=== PATIENT | male | born 1950 | race Caucasian/White ===

== ENCOUNTER → 2020-09-02 09:18 | Outpatient (BNV) | payer MEDICARE, OTHER, SELFPAY | PROVIDERS: PCP Internal Medicine Geriatric Medicine; Visit Provider Internal Medicine | DX: C91.10 Chronic lymphocytic leukemia of B-cell type not having achieved remission (principal); R22.41 Localized swelling, mass and lump, right lower limb; M10.071 Idiopathic gout, right ankle and foot | CPT/HCPCS: 38222; 99204; 99212; 99213; 99214; 99215; 99442; G2211 ==

== ENCOUNTER 2020-10-06 11:47 | Outpatient (REF) | payer MEDICARE, OTHER, SELFPAY ==
[2020-10-06 13:57] LABS: Basophils Absolute Auto 0.1 X10*3/uL (0.0-0.2); Basophils Percent Auto 0.4 % (0-2); Eosinophils Absolute Auto 0.7 X10*3/uL (0.0-0.4); Eosinophils Percent Auto 2.2 % (0-4); Hematocrit 41.2 % (42-52); Hemoglobin 12.7 g/dl (14.0-18.0); Imm Gran Abs Auto 0.09 X10*3/uL (0.00-0.03); Imm Gran Pct Auto 0.3 % (0.0-0.4); Lymphocytes Percent Auto 74.2 % (20-40); MANUAL DIFF FLAG SCAN; Mean Corpuscular HGB Conc 30.8 g/dl (31.0-36.0); Mean Corpuscular Hemoglobin 25.7 pg (27.0-33.0); Mean Corpuscular Volume 83.4 fL (80-98); Mean Platelet Volume 11.1 fL (9.4-12.4); Monocytes Absolute Auto 0.9 X10*3/uL (0.1-1.2); Monocytes Percent Auto 3.1 % (2-11); Neutrophils Percent Auto 19.8 % (45-73); Platelet Count 191 X10*3/uL (160-400); Red Blood Count 4.94 X10*6/uL (4.60-5.80); Red Cell Distribution Width 18.8 % (11.0-16.0); SCAN SMEAR FLAG 1
[2020-10-06 14:04] LABS: Lymphocytes Absolute Auto 22.3 X10*3/uL (1.2-4.9)
[2020-10-06 14:21] LABS: Iron 213 mcg/dL (45-160); Percent Iron Saturation 64 % (15-50); Total Iron Binding Capacity 333 mcg/dL (228-428); Unsaturated Iron Binding 120 ug/dL
[2020-10-06 14:27] LABS: SLIDE REVIEW VERIFIED
== END 2020-10-06 11:48 | disposition home or self-care (01) ==
LOC: HO.HMGCLDS 11:47
PROVIDERS: PCP Internal Medicine Geriatric Medicine; Visit Provider Internal Medicine
DX: C91.10 Chronic lymphocytic leukemia of B-cell type not having achieved remission (principal)
CPT/HCPCS: 36415; 83540; 85025

== ENCOUNTER 2020-10-14 09:39 | Outpatient (REF) | payer MEDICARE, OTHER, SELFPAY ==
[2020-10-14 11:55] LABS: Anion Gap 12 (12-20); Blood Urea Nitrogen 14 mg/dL (9-16); Calcium 9.2 mg/dL (8.4-10.2); Carbon Dioxide 26 mmol/L (22-29); Chloride 105 mmol/L (96-108); Estimated Glomerular Filt Rate > 60; Glucose Random 130 mg/dL (60-115); Potassium 3.9 mmol/L (3.3-5.1); Sodium 139 mmol/L (135-145)
[2020-10-14 11:59] LABS: INTERNATIONAL NORM RATIO 1.1 (0.9-1.1); Prothrombin Time 13.5 SEC (10.8-13.0)
[2020-10-14 12:01] LABS: Hemoglobin 12.4 g/dl (14.0-18.0); Mean Corpuscular HGB Conc 31.8 g/dl (31.0-36.0); Mean Corpuscular Hemoglobin 26.3 pg (27.0-33.0); Mean Corpuscular Volume 82.8 fL (80-98); Mean Platelet Volume 10.4 fL (9.4-12.4); Platelet Count 189 X10*3/uL (160-400); Red Blood Count 4.71 X10*6/uL (4.60-5.80); Red Cell Distribution Width 18.1 % (11.0-16.0); White Blood Count 24.6 X10*3/uL (4.8-10.8)
[2020-10-14 13:31] LABS: Band Neutrophils Percent 1 % (3-5); Basophils Abs Manual 0.7 X10*3/uL (0.0-0.3); Basophils Percent Manual 3 % (0-1); Lymphocytes Absolute Manual 18.5 X10*3/uL (0.6-4.8); Lymphocytes Percent Manual 75 % (20-40); Monocytes Absolute Manual 0.2 X10*3/uL (0.0-1.2); Monocytes Percent Manual 1 % (2-11); Neutrophils Absolute Manual 5.2 X10*3/uL (2.2-7.9); Neutrophils Percent Manual 20 % (45-73)
[2020-10-14 13:33] LABS: Microcytosis 1+ (5-14) /OIF; Ovalocytes 1+ (5-14) /OIF; RBC Morphology NOTED
[2020-10-14 13:34] LABS: Platelet Estimate NORMAL (NORMAL); Platelet Morphology Comment NORMAL; Smudge Cells PRESENT
== END 2020-10-14 09:40 | disposition home or self-care (01) ==
LOC: HO.HMGCLDS 09:39
PROVIDERS: PCP Internal Medicine Geriatric Medicine; Visit Provider Internal Medicine Cardiovascular Disease
DX: Z01.810 Encounter for preprocedural cardiovascular examination (principal); I25.10 Atherosclerotic heart disease of native coronary artery without angina pectoris
CPT/HCPCS: 36415; 80048; 85007; 85025; 85027; 85610

== ENCOUNTER 2021-03-24 09:57 | Outpatient (REF) | payer MEDICARE, OTHER, SELFPAY ==
--- NOTE | ~2021-03-24 | PE_ITS ---
EXAMINATION: Fluorine-18 FDG PET/CT Scan CLINICAL INDICATION: Initial treatment management. CLL staging. PROCEDURE: 52 minutes following the intravenous administration of 16.9 mCi of fluorine 18 FDG, images from the base of the skull to the mid thighs were obtained using a combined PET/CT scanner with CT scan based attenuation correction. No oral contrast was administered. No intravenous contrast was administered. Transverse, coronal, sagittal, and volume reconstruction projections were obtained. The patient's blood glucose as determined by a finger stick, was 127 mg/dl immediately prior to injection. Total CT exam dose-length product 758.93 mGy-cm * These CT images were obtained using dose optimization techniques as appropriate, variously including the following: Automated exposure control * Adjustment of mA and/or kV according to patient size (this includes techniques or standardized protocols for targeted exams where dose is matched to indication/reason for exam; i.e. extremities or head) * Use of iterative reconstruction technique COMPARISON: No previous PET/CT scan or other relevant imaging studies are available for comparison. FINDINGS: (Slice numbers described in this report are numbered superiorly to inferiorly with slice #1 in the head) NECK AND VISUALIZED HEAD: Multiple extensive subcentimeter cervical lymph nodes are present at all levels bilaterally. These are all too small to be characterized on the FDG PET images. Largest lymph node is a 1.5 x 1.0 cm right cervical level 1B lymph node at the level of the inferior aspect of the right temporomandibular gland which shows some weak FDG activity, SUVmax 2.0, slice 40/267. No other foci of abnormal FDG activity are present in the neck or visualized head. All the other activity in this region appears physiological. THORAX: Multiple axillary lymph nodes are present bilaterally, the largest of which are mildly enlarged and weakly FDG avid. Body Straightener is a left axillary lymph node that measures 2.1 x 1.7 cm in largest transverse dimensions and shows SUVmax 2.1, slice 73/267. There are also multiple subcentimeter mediastinal lymph nodes, none of which are large enough to be well characterized on the FDG PET pulmonary nodules are visualized ages. No significant pulmonary nodules are visualized on these nondiagnostic CT images. A few small subcentimeter nodules are visualized, such as a 0.3 cm right middle lobe nodule, slice 122/349 and a 0.4 cm left apical nodule, slice 87/349. There is no pleural or pericardial fluid, or pneumothorax. ABDOMEN AND PELVIS: No foci of abnormal FDG activity are present in the abdomen or pelvis. The liver is normal in appearance. The gallbladder is resected and there are metallic surgical clips in the gallbladder bed. The spleen is enlarged measuring 17 cm in largest dimension in the coronal projection. There is no abnormal FDG activity in the spleen. The kidneys, adrenal glands and pancreas are unremarkable. There is mild diffuse FDG activity throughout the gastrointestinal tract of varying intensities, with no suspicious focal component. There is diverticulosis without evidence of diverticulitis. The hollow viscera are otherwise unremarkable. The pelvic organs are unremarkable. Multiple metallic surgical clips are present in the scrotum, probably from vasectomy surgery. A fat-containing left inguinal hernia is present. There is an enlarged right external iliac lymph node measuring 2.4 x 1.8 cm in largest transverse dimensions with mild FDG activity, S SUVmax 3.2, slice 202/267. There is also a mildly enlarged left external iliac lymph node showing SUVmax 3.3, slice 201/267. Scattered small subcentimeter retroperitoneal lymph nodes are present. No additional retroperitoneal, pelvic or inguinal lymphadenopathy is present. MUSCULOSKELETAL: No foci of abnormal FDG activity are present in the osseous structures. There are diffuse degenerative changes in the spine but no suspicious sclerotic or lytic lesions are visualized. There is a mild thoracolumbar scoliosis with lower lumbar convexity to the right. Poststernotomy changes with multiple metallic sternal wires in place are noted, with no associated abnormal FDG activity. VASCULAR: Diffuse vascular calcifications including coronary are noted. PET/PET CT fusion skull to thigh IMPRESSION: 1. Multiple lymph nodes are noted as described above in the cervical, axillary, mediastinal and bilateral external iliac joe chains, some of which are enlarged and the largest of which show weak to mild FDG activity. These are nonspecific but consistent with the diagnosis of CLL. 2. Splenomegaly. 3. Diffuse vascular calcifications including coronary.
== END 2021-03-24 09:58 | disposition home or self-care (01) ==
LOC: HO.PET 09:57
PROVIDERS: PCP Internal Medicine Geriatric Medicine; Visit Provider Internal Medicine
DX: Z13.89 Encounter for screening for other disorder (principal)

== ENCOUNTER → 2021-09-17 13:40 | Outpatient (BNVA) | payer MEDICARE, OTHER, SELFPAY | PROVIDERS: PCP Internal Medicine Geriatric Medicine; Visit Provider Surgery Vascular Surgery | DX: I73.9 Peripheral vascular disease, unspecified (principal); I73.00 Raynaud's syndrome without gangrene | CPT/HCPCS: 99202 ==

== ENCOUNTER 2021-10-29 09:52 | Outpatient (REF) | payer MEDICARE, OTHER, SELFPAY ==
--- NOTE | ~2021-10-29 | US_ITS ---
EXAMINATION: ANKLE-BRACHIAL INDICES SINGLE LEVEL PULSE VOLUME RECORDING ARTERIAL DUPLEX BILATERAL LEGS CLINICAL INFORMATION: Peripheral vascular disease COMPARISON: None TECHNIQUE: Ankle-brachial indices and PVR at the ankle were obtained. Duplex Doppler of the bilateral lower extremity arterial systems was performed. FINDINGS: RIGHT: Ankle-brachial index: 1.27 PVR: Normal Diffuse atherosclerotic disease. Common femoral: PSV 150 cm/s. Triphasic waveform. Deep femoral: PSV 172 cm/s. Biphasic waveform. Proximal superficial femoral: PSV 118 cm/s. Biphasic waveform. Mid superficial femoral: PSV 98 cm/s. Biphasic waveform. Distal superficial femoral: PSV 111 cm/s. Triphasic waveform. Popliteal: PSV 119 cm/s. Triphasic waveform. Posterior tibial: PSV 95 cm/s. Biphasic waveform. LEFT: Ankle-brachial index: 1.24 PVR: Normal Diffuse atherosclerotic disease. Common femoral: PSV 136 cm/s. Triphasic waveform. Deep femoral: PSV 301 cm/s. Biphasic waveform. Proximal superficial femoral: PSV 145 cm/s. Biphasic waveform. Mid superficial femoral: PSV 98 cm/s. Triphasic waveform. Distal superficial femoral: PSV 171 cm/s. Triphasic waveform. Popliteal: PSV 121 cm/s. Triphasic waveform. Posterior tibial: PSV 100 cm/s. Triphasic waveform. US/US KIMBERLY complete IMPRESSION: Diffuse atherosclerotic disease without evidence of hemodynamically significant stenosis.
--- NOTE | ~2021-10-29 | US_ITS ---
EXAMINATION: ANKLE-BRACHIAL INDICES SINGLE LEVEL PULSE VOLUME RECORDING ARTERIAL DUPLEX BILATERAL LEGS CLINICAL INFORMATION: Peripheral vascular disease COMPARISON: None TECHNIQUE: Ankle-brachial indices and PVR at the ankle were obtained. Duplex Doppler of the bilateral lower extremity arterial systems was performed. FINDINGS: RIGHT: Ankle-brachial index: 1.27 PVR: Normal Diffuse atherosclerotic disease. Common femoral: PSV 150 cm/s. Triphasic waveform. Deep femoral: PSV 172 cm/s. Biphasic waveform. Proximal superficial femoral: PSV 118 cm/s. Biphasic waveform. Mid superficial femoral: PSV 98 cm/s. Biphasic waveform. Distal superficial femoral: PSV 111 cm/s. Triphasic waveform. Popliteal: PSV 119 cm/s. Triphasic waveform. Posterior tibial: PSV 95 cm/s. Biphasic waveform. LEFT: Ankle-brachial index: 1.24 PVR: Normal Diffuse atherosclerotic disease. Common femoral: PSV 136 cm/s. Triphasic waveform. Deep femoral: PSV 301 cm/s. Biphasic waveform. Proximal superficial femoral: PSV 145 cm/s. Biphasic waveform. Mid superficial femoral: PSV 98 cm/s. Triphasic waveform. Distal superficial femoral: PSV 171 cm/s. Triphasic waveform. Popliteal: PSV 121 cm/s. Triphasic waveform. Posterior tibial: PSV 100 cm/s. Triphasic waveform. US/US arterial duplex LE BI IMPRESSION: Diffuse atherosclerotic disease without evidence of hemodynamically significant stenosis.
== END 2021-10-29 09:53 | disposition home or self-care (01) ==
LOC: HO.US 09:52
PROVIDERS: Visit Provider Surgery Vascular Surgery
DX: I73.9 Peripheral vascular disease, unspecified (principal)
CPT/HCPCS: 93923; 93925

== ENCOUNTER → 2021-11-05 09:56 | Outpatient (BNVA) | payer MEDICARE, OTHER, SELFPAY | PROVIDERS: PCP Internal Medicine Geriatric Medicine; Visit Provider Surgery Vascular Surgery | DX: I73.00 Raynaud's syndrome without gangrene (principal) | CPT/HCPCS: 99212 ==

== ENCOUNTER 2022-03-03 10:58 | Outpatient (REF) | payer MEDICARE, OTHER, SELFPAY ==
--- NOTE | ~2022-03-03 | XR_ITS ---
EXAMINATION: XR CHEST CLINICAL INFORMATION: Acute bronchitis COMPARISON: None TECHNIQUE: 2 views of the chest were obtained. FINDINGS: Cardiac silhouette is normal in size. Patient is status post sternotomy. The lungs are adequately aerated. Mild diffuse patchy airspace opacities are noted bilaterally, slightly more prominent on the left. There is no gross lobar consolidation. No pleural effusion or pneumothorax. Moderate degenerative changes of the spine. Surgical clips of the upper abdomen. XR/XR chest 2V IMPRESSION: Mild diffuse patchy airspace opacities are noted bilaterally, slightly more prominent on the left. Findings are nonspecific but most suggestive of an infectious or inflammatory process. Clinical correlation recommended. Follow-up imaging suggested status post treatment to ensure improvement/resolution.
== END 2022-03-03 10:59 | disposition home or self-care (01) ==
LOC: HO.XRAY 10:58
PROVIDERS: PCP Internal Medicine Geriatric Medicine; Visit Provider Emergency Medicine
DX: J20.9 Acute bronchitis, unspecified (principal)
CPT/HCPCS: 71046

== ENCOUNTER 2022-03-09 09:55 | Outpatient (REF) | payer MEDICARE, OTHER, SELFPAY ==
--- NOTE | ~2022-03-09 | PE_ITS ---
EXAMINATION: FLUORINE-18 FDG PET/CT SCAN CLINICAL INDICATION: Subsequent treatment management. Chronic lymphocytic leukemia. COMPARISON: PET CT scan 03/24/2021. TECHNIQUE: 59 minutes following the intravenous administration of 14.2 mCi of fluorine 18 FDG, images from the base of the skull to the mid thighs were obtained using a combined PET/CT scanner with CT scan based attenuation correction. No intravenous contrast was administered. Transverse, coronal, sagittal, and volume reconstruction projections were obtained. The patient's blood glucose as determined by a finger stick, was 111 mg/dl immediately prior to injection. FINDINGS: NECK AND VISUALIZED HEAD: The study redemonstrates multiple enlarged lymph nodes in the neck bilaterally, more numerous and more prominent on the right. The largest lymph node is redemonstrated in the right level 1B region with an SUV max of 2.2 (image ). Uptake elsewhere within the neck appears physiologic. There is mucoperiosteal thickening in the left maxillary sinus. There have been bilateral lens extractions. The thyroid gland appears normal. THORAX: The study redemonstrates multiple supraclavicular lymph nodes bilaterally, which are more prominent compared to prior imaging. None of the lymph nodes demonstrate significant FDG uptake. The study also redemonstrates bilateral axillary lymph nodes which are more prominent compared to prior imaging. However, there is no significant FDG uptake, and the previously demonstrated lymph node in the left axillary region has an SUV max of 2.3 (image 81/267). There has been interval increase in the size and number of the mediastinal and paratracheal lymph nodes compared to prior imaging, without significant increased FDG activity. There has been interval increase in the size and number of multiple lymph nodes in the lateral chest muller bilaterally, with no significant increased FDG activity. A small lymph node is now noted posterior to the aortic arch, which was not visualized on prior imaging. It has an SUV max of 1.6 (image 72/267). Multiple small nodules are redemonstrated in the lungs bilaterally. None of them demonstrate increased FDG activity. There is a small hiatal hernia, without abnormal FDG uptake. There are no pleural pericardial effusions. ABDOMEN AND PELVIS: There is no abnormal FDG uptake noted in the abdomen and pelvis. The study redemonstrates splenomegaly, which is not significantly changed compared to prior study. There are bilateral pelvic nodes, which were demonstrated on prior imaging, which are more prominent compared to the prior study. However, there is no significant abnormal FDG uptake. Physiologic activity is noted in the kidneys and renal collecting systems bilaterally and there is FDG uptake noted in the large and small bowel. There is diffuse diverticulosis. There is no evidence of bowel obstruction or inflammation. The liver, pancreas and adrenal glands appear normal. The patient is status post cholecystectomy. The study redemonstrates a left fat-containing inguinal hernia. There appear to be bilateral vasectomy clips. MUSCULOSKELETAL: No significant abnormal FDG uptake is noted in the osseous structures. There is a small focus of activity adjacent to the greater trochanter of the left hip, which was demonstrated on prior imaging, and is likely degenerative. There are multilevel degenerative changes throughout the spine with narrowing of intervertebral disc height and facet arthropathy. There is sigmoid scoliosis, convex to the left in the thoracic region and toward the right in the mid and lower lumbar spine. There are degenerative changes at the acromioclavicular joints bilaterally. There are no acute fractures or subluxations. There are sequelae of prior median sternotomy. VASCULAR: The study redemonstrates extensive atheromatous calcification of the aorta and its branches. There are also coronary artery atheromatous calcifications. PET/PET CT fusion skull to thigh IMPRESSION: 1. There has been interval increase in the size and number of lymph nodes bilaterally in the supraclavicular, axillary and chest wall regions, and also in the pelvis. These do not demonstrate significant increase in FDG uptake. 2. There is persistent splenomegaly. 3. There is diverticulosis.
== END 2022-03-09 09:56 | disposition home or self-care (01) ==
LOC: HO.PET 09:55
PROVIDERS: Visit Provider Internal Medicine
DX: Z13.89 Encounter for screening for other disorder (principal)

== ENCOUNTER 2022-09-21 08:16 | Outpatient (REF) | payer MEDICARE, OTHER, SELFPAY ==
--- NOTE | ~2022-09-21 | PE_ITS ---
EXAMINATION: Fluorine-18 FDG PET/CT Scan CLINICAL INDICATION: Subsequent treatment management. Chronic lymphocytic leukemia. PROCEDURE: 60 minutes following the intravenous administration of 15.4 mCi of fluorine 18 FDG, images from the base of the skull to the mid thighs were obtained using a combined PET/CT scanner with CT scan based attenuation correction. No intravenous contrast was administered. Transverse, coronal, sagittal, and volume reconstruction projections were obtained. The patient's blood glucose as determined by a finger stick, was 125 mg/dl immediately prior to injection. The radiotracer was injected intravenously through right antecubital superficial vein, without any complications. Total CT exam dose-length product 624.35 mGy-cm * These CT images were obtained using dose optimization techniques as appropriate, variously including the following: Automated exposure control * Adjustment of mA and/or kV according to patient size (this includes techniques or standardized protocols for targeted exams where dose is matched to indication/reason for exam; i.e. extremities or head) * Use of iterative reconstruction technique COMPARISON: Most recent prior PET CT study done on 03/09/2022 and the baseline PET CT study done on 03/24/2021. FINDINGS: NECK AND VISUALIZED HEAD: No FDG avid disease. Previously documented bilateral supraclavicular lymph nodes show interval decrease in size as well as number since the most recent prior study dated 03/09/2022. Solitary mucus tension cyst versus polyp without any FDG avidity is noted within the left maxillary sinus, unchanged, measures approximately 1.6 cm. THORAX: Interval decrease in size as well as number of previously documented non-FDG avid bilateral axillary lymph nodes since the prior study dated 03/09/2022. No FDG avid disease. ABDOMEN AND PELVIS: No FDG avid disease. Non-FDG avid splenomegaly has decreased in size from 18.5 cm previously to currently 15.2 cm. There are no FDG avid retroperitoneal and/or mesenteric lymphadenopathy. Previously documented mild FDG avid bilateral extensive pelvic and bilateral inguinal lymphadenopathy shows interval decrease in size and number since the most recent prior study dated 03/09/2022. No new abnormalities. Colonic diverticulosis without any CT features of superimposed acute diverticulitis. MUSCULOSKELETAL: No suspicious FDG avid disease. Postop changes of sternotomy. VASCULAR: Calcific atherosclerotic disease of the aorta and its branches including coronary artery calcifications and possible coronary arterial stent. No evidence of aneurysm. Postop changes of CABG. SUV max OF MEDIASTINAL BLOOD POOL: 1.8 SUV max OF LIVER: 2.6 PET/PET CT fusion skull to thigh IMPRESSION: 1. No FDG avid disease is identified within the head and neck, chest, abdomen and pelvis. 2. Previously documented bilateral supraclavicular, axillary and pelvic lymph nodes associated with minimal or no FDG uptake show definite interval decrease in size and number since the prior study dated 03/09/2022 and show no evidence of any FDG avidity, consistent with interval improvement. 3. No new abnormalities.
== END 2022-09-21 08:17 | disposition home or self-care (01) ==
LOC: HO.PET 08:16
PROVIDERS: PCP Internal Medicine Geriatric Medicine; Visit Provider Internal Medicine
DX: Z13.89 Encounter for screening for other disorder (principal)

== ENCOUNTER 2022-11-03 11:07 | Outpatient (REF) | payer MEDICARE, OTHER, SELFPAY | END 2022-11-03 11:08 | disposition home or self-care (01) | LOC: HO.LAB 11:07 | PROVIDERS: PCP Internal Medicine Geriatric Medicine; Visit Provider Internal Medicine Geriatric Medicine | DX: Z13.89 Encounter for screening for other disorder (principal) ==

== ENCOUNTER 2023-01-14 10:22 | Outpatient (REF) | payer MEDICARE, OTHER, SELFPAY ==
[2023-01-14 11:55] LABS: Cholesterol 122 mg/dL (<200); HDL Cholesterol 33 mg/dL (>40); LDL Cholesterol Calculated 63 mg/dL (<100); Triglycerides 131 mg/dL (<150)
== END 2023-01-14 10:23 | disposition home or self-care (01) ==
LOC: HO.HHCL 10:22
PROVIDERS: Visit Provider Internal Medicine Cardiovascular Disease
DX: I25.10 Atherosclerotic heart disease of native coronary artery without angina pectoris (principal)
CPT/HCPCS: 36415; 80061

== ENCOUNTER 2023-03-04 08:26 | Outpatient (REF) | payer MEDICARE, OTHER, SELFPAY | END 2023-03-04 08:27 | disposition home or self-care (01) | LOC: HO.LAB 08:26 | PROVIDERS: PCP Internal Medicine Geriatric Medicine; Visit Provider Internal Medicine Geriatric Medicine | DX: Z13.89 Encounter for screening for other disorder (principal) ==

== ENCOUNTER 2023-03-21 15:46 | Outpatient (REF) | payer MEDICARE, OTHER, SELFPAY ==
--- NOTE | ~2023-03-21 | XR_ITS ---
EXAMINATION: XR CHEST CLINICAL INFORMATION: Cough. COMPARISON: Chest x-ray 03/03/2022 TECHNIQUE: 2 views of the chest were obtained. FINDINGS: The lungs are well-inflated but clear of acute process. The heart size and pulmonary vascularity is normal. There are median sternotomy sutures and mediastinal amalia from previous intervention. No gross bony abnormality seen. XR/XR chest 2V IMPRESSION: Unremarkable chest exam.
[2023-03-21 18:44] LABS: Influenza A PCR NEGATIVE (Negative); Influenza B PCR NEGATIVE (Negative); Resp Syncy Virus RNA Qual PCR NEGATIVE (Negative); SARS COV2 PCR INHOUSE NEGATIVE (Negative)
== END 2023-03-21 15:47 | disposition home or self-care (01) ==
LOC: HO.HHCX 15:46
PROVIDERS: Visit Provider Internal Medicine
DX: Z11.52 Encounter for screening for COVID-19 (principal); Z20.822 Contact with and (suspected) exposure to COVID-19; R05.9 Cough, unspecified
CPT/HCPCS: 0241U; 71046

== ENCOUNTER 2023-03-29 10:03 | Outpatient (REF) | payer OTHER, MEDICARE, SELFPAY ==
--- NOTE | ~2023-03-29 | PE_ITS ---
EXAMINATION: FLUORINE-18 FDG PET/CT SCAN CLINICAL INFORMATION: Subsequent treatment management. Chronic lymphocytic leukemia on therapy. Restaging. TECHNIQUE: 54 minutes following the intravenous administration of 17.3 mCi of fluorine 18 FDG, images from the base of skull to mid-thigh were obtained using a combined PET/CT scanner with CT scan based attenuation correction. No intravenous contrast was administered. Transverse, coronal, sagittal, and volume reconstruction projections were obtained. The patient's blood glucose as determined by a finger stick, was 146 mg/dL immediately prior to injection. The radiotracer was injected intravenously through the right antecubital superficial vein, without any complications. Total CT exam dose-length product 750.35 mGy-cm. * These CT images were obtained using dose optimization techniques as appropriate, variously including the following: Automated exposure control * Adjustment of mA and/or kV according to patient size (this includes techniques or standardized protocols for targeted exams where dose is matched to indication/reason for exam; i.e. extremities or head) * Use of iterative reconstruction technique COMPARISON: Most recent prior PET CT study done on 09/21/2022 and the baseline study done on 03/24/2021. FINDINGS: SUV max REFERENCE: Blood: 2.7 (current); 2.5 (09/21/2022) 2.8 (baseline-03/24/2021). Liver: 4.0 (current). 2.8 (09/21/2022) 3.6 (baseline-03/24/2021). HEAD AND NECK: No abnormal radiotracer uptake. No large intracranial hemorrhage, acute territorial infarct or significant shift of midline structures. Specifically, no tracer avid cervical including supraclavicular lymphadenopathy is noted, unchanged. Note is made of interval progression of mucoperiosteal thickening of both maxillary sinuses. CHEST: Ports and Devices: None Lungs: No abnormal radiotracer uptake. Pleura: No significant pleural effusion. Lymph Nodes: No tracer-avid mediastinal, hilar or internal mammary or axillary lymphadenopathy. Specifically, previously documented bilateral axillary lymph nodes appear stable in size as well as number. Mediastinum: There is no significant pericardial effusion/thickening. Breasts/Chest Wall: No abnormal radiotracer uptake. ABDOMEN/PELVIS: Liver/Biliary System: No focal tracer-avid liver lesion. The gallbladder is surgically absent. Pancreas: Normal.No evidence of pancreatic ductal dilatation. Spleen: No abnormal radiotracer uptake. No evidence of splenomegaly. Adrenal Glands: No abnormal radiotracer uptake. Kidneys: No hydronephrosis, hydroureter or renal calculi bilaterally. Bowel: There is no significant bowel dilatation to suggest obstruction. Lymph Nodes: No tracer avid retroperitoneal, mesenteric or pelvic and/or groin lymphadenopathy. Specifically, previously documented bilateral groin/inguinal non tracer avid lymph nodes appear stable. Pelvic Organs: The urinary bladder is underdistended. The prostate is enlarged and appear heterogeneous. MUSCULOSKELETAL: No suspicious focal FDG avid disease. Postop changes of sternotomy. Asymmetric sclerosis involving the posterior part of the left iliac bone unchanged since the baseline study dated 03/24/2021. VASCULAR: Calcific atherosclerotic disease of the aorta including carotid and coronary arterial calcifications and no evidence of aneurysm, unchanged. THE SITE(S) OF MOST INTENSE FDG AVIDITY AND SUV MAX: No pathologic tracer avid disease. PET/PET CT fusion skull to thigh IMPRESSION: 1. Stable appearance of the head and neck and chest abdomen and pelvis since the most recent prior study dated 09/21/2022. 2. Specifically, previously identified non tracer avid bilateral axillary and bilateral groin lymph nodes appear relatively unchanged in size as well as number, and no new abnormalities.
== END 2023-03-29 10:04 | disposition home or self-care (01) ==
LOC: HO.PET 10:03
PROVIDERS: PCP Internal Medicine Geriatric Medicine; Visit Provider Internal Medicine
DX: Z13.89 Encounter for screening for other disorder (principal)

== ENCOUNTER 2023-08-15 12:04 | Outpatient (REF) | payer MEDICARE, OTHER, SELFPAY ==
[2023-08-15 14:12] LABS: Prostate Specific Antigen 4.59 ng/mL (<0.05-4.0)
[2023-08-15 15:46] LABS: Creatinine Urine 127.48 mg/dL
[2023-08-15 16:13] LABS: Microalbum/Creatinine Ratio Ur 17.2 ug/mg cr (<30)
[2023-08-16 08:51] LABS: ~HepC Num1 0.08 S/CO (0.00-0.79); ~Hepatitis C Antibody Nonreactive (Nonreactive)
== END 2023-08-15 12:05 | disposition home or self-care (01) ==
LOC: HO.HHCL 12:04
PROVIDERS: Internal Medicine; Visit Provider Internal Medicine Geriatric Medicine
DX: E11.59 Type 2 diabetes mellitus with other circulatory complications (principal); R97.20 Elevated prostate specific antigen [PSA]; Z11.59 Encounter for screening for other viral diseases; Z12.5 Encounter for screening for malignant neoplasm of prostate
CPT/HCPCS: 36415; 82043; 82570; 84153; 86803

== ENCOUNTER 2023-10-12 08:49 | Outpatient (AMB) | payer MEDICARE, OTHER, SELFPAY ==
--- NOTE | 2023-10-12 08:50 | A.OFFVIS_ITS ---
Intake Visit Reasons: elevated PSA/FH Prostate Ca Intake Note: Pt presents to the office today for a new patient visit for elevated PSA/FH prostate Ca. Urology Meds: Finasteride Blood Thinners: Aspirin Allergies No Known Allergies Allergy (Verified 10/12/23 08:50) HPI Comments Details: Abad is a pleasant male. He is a patient of Dr. Kelly. He has seen for the following urologic conditions - elevated PSA Accompanied by PSA reviewed Consistent with large prostate Discussed prostate biopsy versus trending PSA level They would rather check PSA in 6 months Discussed option of finasteride PFSH Medical History Family history of prostate cancer Atrial fibrillation COVID-19 vaccine administered History of cataract Depression Diabetes High cholesterol HTN (hypertension) Surgical History S/P triple vessel bypass Hx of cholecystectomy Family History Father Cancer Brother Cancer Mother Esophageal cancer Other Prostate cancer Social History Household Members: Spouse Housing: House Are you a primary laboratory animal care veterinarian to a significant other at home: No Do you presently have visiting nurse or other home services: No Alcohol intake: current Alcohol intake frequency: a few times a week Alcohol type: beer Patient Tobacco Use Status: Former Tobacco user Tobacco use type: Cigarette Cigarette Packs Per Day: 2.5 service: Yes Current occupational status: retired Review of Systems Const Denies chills and Denies fever(s) Card Reports no additional complaints and Denies syncope Resp Denies cough GI Denies abdominal pain and Denies heartburn Reports as per HPI and Denies change in libido Neuro Denies syncope Psych Denies change in libido Endo Denies change in libido Physical Exam Const General: cooperative, healthy appearing, comfortable and no acute distress Orientation/consciousness: patient oriented x3 HEENT Face and sinus: Yes normal facial exam Mouth: moist mucous membranes Neck Neck: Yes normal visual inspection, Yes full ROM and Yes trachea midline Chest Chest palpation & inspection: normal inspection of the chest Resp Effort & Inspection: normal respiratory effort, able to speak in complete sentences and no respiratory distress GI Inspection: Yes normal to inspection Back/Spine/Pelvis Cervical Spine: normal cervical lordosis Thoracic/Lumbar Spine: thoracic and lumbar spine normal to inspection Skin General skin exam: no rashes or lesions noted Neuro General: patient oriented x3, gait normal, tone normal and moves all extremities Extrem General: Yes normal to inspection and Yes capillary refill normal Assessment & Plan Assessment & Plan (1) Elevated PSA: Code(s): R97.20 - Elevated prostate specific antigen [PSA] Category: Medical Plan 6 month follow-up PSA Orders: Orders PSA,Total (Free>4and<10) 6 Months R97.20 - Elevated prostate specific antigen [PSA] Patient Instructions: Imaging studies, laboratory and physical exam results were discussed and reviewed in detail. No major barriers to patient understanding were identified. An opportunity to ask questions regarding the treatment plan was provided. All questions were answered. The patient expressed understanding and agreement with the above treatment plan. The patient is aware they should contact our office by phone for worsening of their current condition or the appearance of new urologic symptoms. Compliance is encouraged with any medications and followup testing that is ordered. It is a privilege to participate in the urologic care of your patient. If you have any questions or concerns regarding treatment for the above conditions, or other urologic issues, please do not hesitate to contact me. The office telephone contact is [phone]. This note is constructed using voice recognition software. While every effort has been made to ensure accuracy sccm administrator errors may have been included. Yours sincerely, Dr Bro Harrell MD, [facility] - Urology Providers of Expert, Compassionate Care for the Genitourinary System Coding Level of Care Code New Pt Level 4 (87329) Diagnoses Elevated PSA R97.20
== END 2023-10-12 09:30 | disposition home or self-care (01) ==
PROVIDERS: PCP Internal Medicine Geriatric Medicine; Visit Provider Urology
DX: R97.20 Elevated prostate specific antigen [PSA] (principal)
CPT/HCPCS: 99204

== ENCOUNTER → 2023-10-12 08:49 | Outpatient (BNVA) | payer OTHER, MEDICARE, SELFPAY | PROVIDERS: PCP Internal Medicine Geriatric Medicine; Visit Provider Urology ==

== ENCOUNTER 2023-11-16 09:49 | Outpatient (REF) | payer MEDICARE, OTHER, SELFPAY ==
--- NOTE | ~2023-11-16 | US_ITS ---
EXAMINATION: US VENOUS ULTRASOUND WITH DOPPLER LOWER EXTREMITY, RIGHT CLINICAL INFORMATION: Pain in right calf and swelling COMPARISON: None available. TECHNIQUE: Ultrasound of the deep veins is performed from the hip to the calf with compression sonography and color and pulse Doppler assessment. Spectral analysis with color-flow imaging is performed. FINDINGS: There is normal venous compression and respiratory variation and augmented flow. The visualized common femoral vein, superficial femoral vein, profunda femoral vein, popliteal vein, and the trifurcation region shows no evidence of deep venous thrombosis. There is no significant popliteal fossa cyst. If the patient's symptoms persist, followup ultrasound in 5 days 7 days might be of value to exclude proximal propagation from a non-visualized calf vein. US/US venous duplex LE RT IMPRESSION: No DVT demonstrated in the right lower extremity.
== END 2023-11-16 09:50 | disposition home or self-care (01) ==
LOC: HO.US 09:49
PROVIDERS: Visit Provider Internal Medicine
DX: C91.10 Chronic lymphocytic leukemia of B-cell type not having achieved remission (principal); R60.0 Localized edema
CPT/HCPCS: 93971

== ENCOUNTER 2024-03-07 08:43 | Outpatient (REF) | payer MEDICARE, OTHER, SELFPAY ==
[2024-03-07 11:59] LABS: Anion Gap 12 (12-20); Blood Urea Nitrogen 13 mg/dL (9-16); Calcium 9.5 mg/dL (8.4-10.2); Carbon Dioxide 29 mmol/L (22-29); Chloride 108 mmol/L (96-108); Cholesterol 94 mg/dL (<200); Estimated Glomerular Filt Rate > 60; Glucose Random 141 mg/dL (60-115); HDL Cholesterol 32 mg/dL (>40); LDL Cholesterol Calculated 47 mg/dL (<100); Potassium 4.4 mmol/L (3.3-5.1); Sodium 145 mmol/L (135-145); Triglycerides 78 mg/dL (<150)
[2024-03-07 12:18] LABS: PSA,Total (Free>4and<10) 4.46 ng/mL (0.00-4.00)
[2024-03-07 12:26] LABS: Creatinine Urine 49.87 mg/dL; Microalbum/Creatinine Ratio Ur 84.2 ug/mg cr (<30)
[2024-03-07 12:33] LABS: Folate 9.3 ng/mL (> or = 4.0); Vitamin B12 409 pg/mL (200-900)
[2024-03-08 11:27] LABS: Free Prostate Spec Ag 0.3 ng/mL; Percent Free Prostate Spec Ag 7 % (calc) (>25); Prostate Specific Ag Total 4.4 ng/mL (< OR = 4.0)
== END 2024-03-07 08:44 | disposition home or self-care (01) ==
LOC: HO.HHCL 08:43
PROVIDERS: Urology; Visit Provider Internal Medicine Geriatric Medicine
DX: Z12.5 Encounter for screening for malignant neoplasm of prostate (principal); R97.20 Elevated prostate specific antigen [PSA]; I25.10 Atherosclerotic heart disease of native coronary artery without angina pectoris; B07.8 Other viral warts; E11.59 Type 2 diabetes mellitus with other circulatory complications
CPT/HCPCS: 36415; 80048; 80061; 82043; 82570; 82607; 82746; 84153; 84154; 85025

== ENCOUNTER 2024-03-07 09:49 | Outpatient (REF) | payer MEDICARE, OTHER, SELFPAY ==
[2024-03-07 11:33] LABS: MANUAL DIFF FLAG NO
[2024-03-07 11:45] LABS: Basophils Percent Auto 0.6 % (0-2); Eosinophils Absolute Auto 0.2 X10*3/uL (0.0-0.4); Eosinophils Percent Auto 3.1 % (0-4); Hematocrit 35.5 % (42.0-52.0); Imm Gran Abs Auto 0.04 X10*3/uL (0.00-0.03); Imm Gran Pct Auto 0.6 % (0.0-0.4); Lymphocytes Absolute Auto 1.2 X10*3/uL (1.2-4.9); Lymphocytes Percent Auto 17.9 % (20-40); Mean Corpuscular HGB Conc 33.8 g/dl (31.0-36.0); Mean Corpuscular Hemoglobin 31.7 pg (27.0-33.0); Mean Corpuscular Volume 93.9 fL (80.0-98.0); Mean Platelet Volume 10.5 fL (9.4-12.4); Monocytes Absolute Auto 0.5 X10*3/uL (0.1-1.2); Monocytes Percent Auto 6.7 % (2-11); Neutrophils Absolute Auto 4.8 x10*3/uL (2.0-8.3); Neutrophils Percent Auto 71.1 % (45-73); Platelet Count 155 X10*3/uL (160-400); Red Blood Count 3.78 X10*6/uL (4.60-5.80); Red Cell Distribution Width 14.7 % (11.0-16.0); White Blood Count 6.8 X10*3/uL (4.8-10.8)
== END 2024-03-07 09:50 | disposition home or self-care (01) ==
LOC: HO.HHCL 09:49
PROVIDERS: Visit Provider Internal Medicine Geriatric Medicine
DX: Z13.89 Encounter for screening for other disorder (principal)
CPT/HCPCS: 36415; 85025

== ENCOUNTER 2024-03-22 08:39 | Outpatient (AMB) | payer MEDICARE, OTHER, SELFPAY ==
--- NOTE | 2024-03-22 08:39 | A.OFFVIS_ITS ---
Intake Visit Reasons: 6M PSA(Set) Intake Note: Patient is present for 6m PSA Urology Medication:NONE Antibiotic Allergy:NONE Blood Thinner:ELIQUIS,ASPIRIN Waterworks Pump Station Operator Required: No Allergies No Known Allergies Allergy (Verified 03/22/24 08:40) HPI Comments Details: Abad is a pleasant male. He is a patient of Dr. Kelly. He has seen for the following urologic conditions - elevated PSA Telemedicine Evaluation 15 min Consultation Doximity Halley Video Discussed PSA PCPT calculator shows 35% prostate cancer given low free PSA Discussed biopsy At this point in time he would like to repeat PSA in 6 months Will organize urine DNA test Elevated PSA PSA 08/09 4.6, 03/11 4.4 7% Consistent with large prostate Discussed prostate biopsy versus trending PSA level Brother with prostate cancer PFSH Medical History Family history of prostate cancer Atrial fibrillation COVID-19 vaccine administered History of cataract Depression Diabetes High cholesterol HTN (hypertension) Surgical History S/P triple vessel bypass Hx of cholecystectomy Family History Father Cancer Brother Cancer Mother Esophageal cancer Other Prostate cancer Social History Household Members: Spouse Housing: House Are you a primary daycare provider to a significant other at home: No Do you presently have visiting nurse or other home services: No Alcohol intake: current Alcohol intake frequency: a few times a week Alcohol type: beer Patient Tobacco Use Status: Former Tobacco user Tobacco use type: Cigarette Cigarette Packs Per Day: 2.5 service: Yes Current occupational status: retired Review of Systems Const All systems reviewed & are unremarkable except as noted in HPI and below Reports no additional complaints Resp Reports no additional complaints GI Reports no additional complaints Reports as per HPI Musc Reports no additional complaints Physical Exam Telemedicine evaluation Appropriate responses Regular breathing rate and rhythm HEENT Head: Yes normal to inspection Ears: hearing grossly normal bilaterally Eyes General: appearance normal, both eyes and all related structures Neck Neck: Yes normal visual inspection Chest Chest palpation & inspection: normal inspection of the chest Resp Effort & Inspection: normal respiratory effort and able to speak in complete sentences Telehealth Telehealth Telehealth Platform: Doximity Location of provider rendering services: practice address Location of patient: address on file Patient Identification confirmed using: Name, : Yes Telehealth method: video Patient verbally consented to treatment: Yes Patient verbally consented to billing insurance company: Yes Patient informed of any privacy concerns related to visit: Yes Minutes spent on Phone/Video with Pt.: 15 Assessment & Plan Assessment & Plan (1) Elevated PSA: Code(s): R97.20 - Elevated prostate specific antigen [PSA] Category: Medical Plan ExoDx Repeat PSA in six-month Orders: Orders PSA,Total (Free>4and<10) 6 Months R97.20 - Elevated prostate specific antigen [PSA] Patient Instructions: Imaging studies, laboratory and physical exam results were discussed and reviewed in detail. No major barriers to patient understanding were identified. An opportunity to ask questions regarding the treatment plan was provided. All questions were answered. The patient expressed understanding and agreement with the above treatment plan. The patient is aware they should contact our office by phone for worsening of their current condition or the appearance of new urologic symptoms. Compliance is encouraged with any medications and followup testing that is ordered. It is a privilege to participate in the urologic care of your patient. If you have any questions or concerns regarding treatment for the above conditions, or other urologic issues, please do not hesitate to contact me. The office telephone contact is [phone]. This note is constructed using voice recognition software. While every effort has been made to ensure accuracy bank operations officer errors may have been included. Yours sincerely, Dr Bro Harrell MD, [facility] - Urology Providers of Expert, Compassionate Care for the Genitourinary System Coding Level of Care Code Tele Est Pt Level 3 (99829) Diagnoses Elevated PSA R97.20
== END 2024-03-22 13:16 | disposition home or self-care (01) ==
LOC: HO.HUSH 08:39
PROVIDERS: PCP Internal Medicine Geriatric Medicine; Visit Provider Urology
DX: R97.20 Elevated prostate specific antigen [PSA] (principal)
CPT/HCPCS: 99213

== ENCOUNTER 2024-03-23 08:26 | Outpatient (REF) | payer MEDICARE, OTHER, SELFPAY ==
--- NOTE | ~2024-03-23 | US_ITS ---
EXAMINATION: US ABDOMEN COMPLETE CLINICAL INFORMATION: Evaluate splenomegaly. COMPARISON: None available. TECHNIQUE: Real-time imaging of the abdominal viscera. FINDINGS: PANCREAS: The proximal portion is unremarkable. The pancreatic tail. Visualized due to overlying bowel gas. ABDOMINAL AORTA: Mild atherosclerotic disease. INFERIOR VENA CAVA: Visualized portions are normal. LIVER: The liver is normal in size. The liver contour is normal. Parenchymal echogenicity is normal. No focal hepatic lesion. There is no intrahepatic biliary duct dilatation seen. GALLBLADDER: Surgically absent. COMMON BILE DUCT: Normal in caliber measuring 0.7 cm in diameter. RIGHT KIDNEY: No hydronephrosis. No renal calculi or focal parenchymal lesions. The kidney measures 11.7 cm in maximum dimension. LEFT KIDNEY: No hydronephrosis. No renal calculi or focal parenchymal lesions. The kidney measures 11.3 cm in maximum dimension. SPLEEN: The spleen measures 12.7 cm in maximum dimension. FREE FLUID: None. US/US abdomen complete IMPRESSION: Spleen at the upper limits of normal for size. Electronically signed by: Naomy Daley MD 03/23/2024 08:15 PM OMARI PEARCE
== END 2024-03-23 08:27 | disposition home or self-care (01) ==
LOC: HO.HMGCX 08:26
PROVIDERS: PCP Internal Medicine Geriatric Medicine; Visit Provider Internal Medicine
DX: C91.10 Chronic lymphocytic leukemia of B-cell type not having achieved remission (principal)
CPT/HCPCS: 76700

== ENCOUNTER 2024-03-31 12:44 | Emergency (ER) | payer MEDICARE, OTHER, SELFPAY ==
[2024-03-31 13:09] VITALS: BP 130/65; PULSE 85; RESP 16; TEMP 36.9; O2SAT 98; BMI 25.1
--- NOTE | 2024-03-31 13:10 | ED.GENADULT ---
HPI - General Adult General Chief complaint: Wound/Laceration Stated complaint: procedure yest on knee, wont stop bleeding Time Seen by Provider: 03/31/24 13:50 Source: patient and family () Mode of arrival: ambulatory Limitations: no limitations History of Present Illness ED Provider: CHARLEE SCHMITZ PA-C HPI narrative: 74-year-old male with pmhx significant for CLL, PAD, DM, HTN, HDL, triple-vessel bypass in 2013, atrial fibrillation on eliquis presents to the ED today for evaluation of skin bleeding since yesterday. Patient reports history of skin cancer requiring skin biopsy yesterday. Biopsy was taken of the skin along his anterior left knee. He was not advised to discontinue eliquis prior to or after the procedure. During the procedure, the bleeding was cauterized and he was discharged home. He reports stopping by a friend's house on his way home when he noticed that he was bleeding through the dressing and onto his pants. The area has continued bleeding throughout the night and into the morning today. He approximately bled through 4-5 ABD pads throughout the night. His at bedside has a attempted to apply pressure at home without improvement, prompting them to come to the ED for further evaluation. He takes Eqliuis BID. Denies any fatigue, weakness, chest pain, palpitations, sob. Denies any other concerns at this time. Related Data Home Medications ?Medication ?Instructions ?Recorded ?Confirmed aspirin 81 mg tablet,delayed 81 mg PO DAILY 09/02/20 03/19/24 release atorvastatin 80 mg tablet 1 tab PO DAILY 09/02/20 03/19/24 finasteride 5 mg tablet 1.25 mg PO DAILY 09/02/20 03/19/24 metformin 500 mg tablet 1 tab PO DAILY 09/02/20 03/19/24 omeprazole 20 mg capsule,delayed 1 cap PO DAILY 09/02/20 03/19/24 release amlodipine 5 mg tablet 5 mg PO DAILY 10/03/20 03/19/24 apixaban 5 mg tablet (Eliquis) 5 mg PO BID 12/03/20 03/19/24 furosemide 20 mg tablet 40 mg PO DAILY 08/18/21 03/19/24 atenolol 50 mg tablet 50 mg PO DAILY 11/05/21 03/19/24 ferrous sulfate 325 mg (65 mg 1 tab PO DAILY 02/26/22 03/19/24 iron) tablet empagliflozin 10 mg tablet 10 mg PO DAILY 03/19/24 03/19/24 (Jardiance) Allergies Allergy/AdvReac Type Severity Reaction Status Date / Time No Known Allergies Allergy Verified 03/31/24 13:19 Review of Systems Review of Systems: Yes all other systems are reviewed and are negative PMFSH Past Medical History Attestation statement: The following information was validated with the patient. Source: old records reviewed and nursing notes reviewed Medical History Family history of prostate cancer Atrial fibrillation COVID-19 vaccine administered History of cataract Depression Diabetes High cholesterol HTN (hypertension) Surgical History S/P triple vessel bypass Hx of cholecystectomy Family History Family History Father Cancer Brother Cancer Mother Esophageal cancer Other Prostate cancer Social History Social History Household Members: Spouse Housing: House Are you a primary pulmonary care nurse to a significant other at home: No Do you presently have visiting nurse or other home services: No Alcohol intake: current Alcohol intake frequency: a few times a week Alcohol type: beer Patient Tobacco Use Status: Former Tobacco user Tobacco use type: Cigarette Cigarette Packs Per Day: 2.5 Advance Directives: Yes Advance Directives Information Provided: No Advance Directives on File: No service: Yes Current occupational status: retired Physical Exam ED Vital Signs: Vital Signs - 24 hr 03/31/24 13:09 03/31/24 15:24 Temperature 98.5 F 98.1 F Pulse Rate 85 82 Respiratory Rate 16 16 Blood Pressure 130/65 136/66 Pulse Oximetry 98 98 Oxygen Delivery Method Room Air Room Air BMI result Body Mass Index 25.1 Vital signs stable. Not tachycardic. General: Well appearing, in no acute distress. Skin: Warm, dry, intact. No rashes or lesions. no pallor. Head: Normocephalic, atraumatic. Cardiac: Chest wall symmetric. RRR Lungs: Normal respiratory effort without accessory muscle use. CTA bilaterally Ext: + small, approximately 0.5- 1 cm area of open skin noted to left anterior knee with active bleeding. bleed is slow, not pulsating. FROM intact to left knee. ambulating with steady gait. 2+dp/pt pulse intact. Neuro: AOx3. Normal speech. Ambulating with steady gait. Psych: Appropriate mood and affect. Responds appropriately to questions. Course Course Course Narrative: This is an RME: Additional HPI, ROS, PE not included below will be deferred to primary provider. RME assessment and note performed by: Lina Rogers PA-C This is a [id number]-male, with a hx of a fib on eliquis, DM, HTN, HLD, who presents to the ER with complaints of left knee wound. Pt had a biopsy procedure on left knee yesterday and has not stopped bleeding. He has changed his dressing multiple times. He did not hold his eliquis. Plan: Basic labs Reevaluation(s) Reevaluation #1: CBC does not demonstrate anemia. no concern for acute blood loss. hemostasis achieved with silver nitrate. patient was observed for 1 hour without further bleeding. bacitracin and pressure dressing applied. advised to change daily. Patient has remained stable throughout ED visit today. Discussed worrisome signs and symptoms and when to return to the ED. All questions answered at this time. Patient is agreeable with disposition and stable for discharge. Medications Administered Discontinued Medications Generic Name Dose Route Start Last Admin Trade Name Jinq PRN Reason Stop Dose Admin Bacitracin 1 appl 03/31/24 15:09 03/31/24 15:11 Bacitracin Oint 0.9 Gm Packet TOPICAL 03/31/24 15:10 1 appl ONCE ONE Administration Protocol Silver Nitrate 3 appl 03/31/24 13:50 03/31/24 14:27 Silver Nitrate Applicator Stick..Ea. TOPICAL 03/31/24 13:51 3 appl ONCE ONE Administration Silver Nitrate 3 appl 03/31/24 14:24 03/31/24 14:28 Silver Nitrate Applicator Stick..Ea. TOPICAL 03/31/24 14:25 3 appl ONCE ONE Administration Medical Decision Making Medical Decision Making MDM Narrative: 74-year-old male with pmhx significant for CLL, PAD, DM, HTN, HDL, triple-vessel bypass in 2013, atrial fibrillation on eliquis presents to the ED today for evaluation of skin bleeding since yesterday. His vitals are stable. he is nontoxic appearing and in NAD. exam significant for small, approximately 0.5- 1 cm area of open skin noted to left anterior knee with active bleeding. bleed is slow, not pulsating. FROM intact to left knee. ambulating with steady gait. 2+dp/pt pulse intact. Differential diagnosis includes hemorrhage, hematoma, anemia Plan for basic labs, hemostasis, and re-evaluation. Differential Diagnosis Differential Diagnoses: The differential diagnosis associated with the presentation includes as above. Admission/Observation not indicated Lab Data MDM Lab Attestation statement: I reviewed the patient's lab results. as above 03/31/24 13:36 03/31/24 13:36 Labs: Lab Results 03/31/24 Range/Units 13:36 WBC 8.2 (4.8-10.8) X10*3/uL RBC 4.38 L (4.60-5.80) X10*6/uL Hgb 14.0 (14.0-18.0) g/dl Hct 39.8 L (42.0-52.0) % MCV 90.9 (80.0-98.0) fL MCH 32.0 (27.0-33.0) pg MCHC 35.2 (31.0-36.0) g/dl RDW 13.4 (11.0-16.0) % Plt Count 161 (160-400) X10*3/uL MPV 10.6 (9.4-12.4) fL Immature Gran % (Auto) 0.6 H (0.0-0.4) % Neut % (Auto) 69.5 (45-73) % Lymph % (Auto) 20.0 (20-40) % Daggett % (Auto) 6.7 (2-11) % Eos % (Auto) 2.7 (0-4) % Baso % (Auto) 0.5 (0-2) % Lymph # (Auto) 1.6 (1.2-4.9) X10*3/uL Daggett # (Auto) 0.6 (0.1-1.2) X10*3/uL Eos # (Auto) 0.2 (0.0-0.4) X10*3/uL Baso # (Auto) 0.0 (0.0-0.2) X10*3/uL Abs Immat Gran (auto) 0.05 H (0.00-0.03) X10*3/uL Absolute Neuts (auto) 5.7 (2.0-8.3) x10*3/uL Absolute Nucleated RBC 0.000 (0.0-0.012) X10*3/uL Nucleated RBC % (auto) 0.0 (0.0-0.2) /100WBC PT 13.1 H (10.9-12.4) SEC INR 1.1 (0.9-1.1) APTT 33.4 (26.0-36.8) SEC Sodium 140 (135-145) mmol/L Potassium 4.6 (3.3-5.1) mmol/L Chloride 107 (96-108) mmol/L Carbon Dioxide 24 (22-29) mmol/L Anion Gap 14 (12-20) BUN 14 (9-16) mg/dL Creatinine 1.02 (0.5-1.4) mg/dL Estim Creat Clear Calc 60.5 Estimated GFR > 60 Random Glucose 169 H (60-115) mg/dL Calcium 9.4 (8.4-10.2) mg/dL Total Bilirubin 2.1 H (0.0-1.0) mg/dL AST 23 (5-37) U/L ALT 27 (0-40) U/L Alkaline Phosphatase 86 (39-117) U/L Total Protein 7.1 (6.5-8.0) g/dL Albumin 4.3 (3.5-5.0) g/dL Independent Historian Clinical information obtained from an independent historian. History obtained from or confirmed by: Spouse External Record Review External record reviewed: Inpatient record, Office record, Outpatient record, Prior outpatient labs, Prior outpatient radiology, Primary care record and Outside ED record Chronic Conditions Patient?s care impacted by: Other (afib) Social Determinants Patient?s care significantly limited by Social Determinants of Health including: Other Social Determinant of Health Critical Care Time Critical Care Time Critical Care Time: No Discharge Plan Discharge Clinical Impression: Hemorrhage of skin lesion Patient Disposition: Home, Self-Care Additional Instructions: You were evaluated in the ED today for bleeding from your biopsy sight. Bleeding was controlled with silver nitrate. Keep the reyes wrap applied for compression. Change your dressing daily to 2 times a day over the next few days. Apply bacitracin to the area twice daily for the next few days to prevent infection. Do not wash the area for 24 hours. Return to the ED with any new or worsening symptoms such as worsening pain, swelling, redness, fevers, drainage, bleeding you are unable to control. In the case of an emergency call 911. Prescriptions: No Action metformin 500 mg tablet 1 tab PO DAILY atorvastatin 80 mg tablet 1 tab PO DAILY aspirin [Aspir-81] 81 mg Tablet,Delayed Release (Dr/Ec) 81 mg PO DAILY omeprazole 20 mg capsule,delayed release(DR/EC) 1 cap PO DAILY finasteride 5 mg tablet 1.25 mg PO DAILY amlodipine 5 mg Tablet 5 mg PO DAILY Eliquis 5 mg Tablet 5 mg PO BID furosemide 20 mg Tablet 40 mg PO DAILY ferrous sulfate 325 mg (65 mg iron) tablet 1 tab PO DAILY Jardiance 10 mg tablet 10 mg PO DAILY atenolol 50 mg tablet 50 mg PO DAILY Referrals: Name,MD Nahum [Primary Care Provider] - Interventions: ED Discharge Assessment Last Done: 03/31/24 15:24 Discharge Date/Time: 03/31/24 15:25 Print Language: Australian
[2024-03-31 13:40] LABS: MANUAL DIFF FLAG NO
[2024-03-31 13:42] LABS: Basophils Percent Auto 0.5 % (0-2); Eosinophils Absolute Auto 0.2 X10*3/uL (0.0-0.4); Eosinophils Percent Auto 2.7 % (0-4); Hematocrit 39.8 % (42.0-52.0); Imm Gran Abs Auto 0.05 X10*3/uL (0.00-0.03); Imm Gran Pct Auto 0.6 % (0.0-0.4); Lymphocytes Absolute Auto 1.6 X10*3/uL (1.2-4.9); Mean Corpuscular HGB Conc 35.2 g/dl (31.0-36.0); Mean Corpuscular Volume 90.9 fL (80.0-98.0); Mean Platelet Volume 10.6 fL (9.4-12.4); Monocytes Absolute Auto 0.6 X10*3/uL (0.1-1.2); Monocytes Percent Auto 6.7 % (2-11); Neutrophils Absolute Auto 5.7 x10*3/uL (2.0-8.3); Neutrophils Percent Auto 69.5 % (45-73); Platelet Count 161 X10*3/uL (160-400); Red Blood Count 4.38 X10*6/uL (4.60-5.80); Red Cell Distribution Width 13.4 % (11.0-16.0); White Blood Count 8.2 X10*3/uL (4.8-10.8)
[2024-03-31 13:48] LABS: INTERNATIONAL NORM RATIO 1.1 (0.9-1.1); Prothrombin Time 13.1 SEC (10.9-12.4)
[2024-03-31 13:50] LABS: Partial Thromboplastin Time 33.4 SEC (26.0-36.8)
[2024-03-31 14:07] LABS: Albumin Level 4.3 g/dL (3.5-5.0); Alkaline Phosphatase 86 U/L (39-117); Anion Gap 14 (12-20); Aspartate Amino Transferase 23 U/L (5-37); Bilirubin Total 2.1 mg/dL (0.0-1.0); Blood Urea Nitrogen 14 mg/dL (9-16); Calcium 9.4 mg/dL (8.4-10.2); Carbon Dioxide 24 mmol/L (22-29); Chloride 107 mmol/L (96-108); Creatinine Clr Calc Pharmacy 60.5; Estimated Glomerular Filt Rate > 60; Glucose Random 169 mg/dL (60-115); Potassium 4.6 mmol/L (3.3-5.1); Sodium 140 mmol/L (135-145); Total Protein 7.1 g/dL (6.5-8.0)
[2024-03-31] MEDS: Silver Nitrate Applicator STICK..EA. 3 APPL TOPICAL ×2 (14:27→14:28)
--- NOTE | 2024-03-31 14:29 | PC.NURSE ---
provider to administer medications
[2024-03-31 14:41] LABS: Alanine Aminotransferase 27 U/L (0-40)
[2024-03-31] MEDS: Bacitracin Oint 0.9 GM PACKET 1 APPL TOPICAL (15:11)
--- NOTE | 2024-03-31 15:23 | PC.NURSE ---
dressing applied by PA, pt currently denying pain/discomfort
[2024-03-31 15:24] VITALS: BP 136/66; PULSE 82; RESP 16; TEMP 36.7; O2SAT 98
== END 2024-03-31 15:25 | disposition home or self-care (01) ==
PROVIDERS: Physician Assistant Medical; Emergency Provider Emergency Medicine; PCP Internal Medicine Geriatric Medicine
DX: L76.21 Postprocedural hemorrhage of skin and subcutaneous tissue following a dermatologic procedure (principal); E11.9 Type 2 diabetes mellitus without complications; I10 Essential (primary) hypertension; E78.00 Pure hypercholesterolemia, unspecified; I73.00 Raynaud's syndrome without gangrene; Z85.46 Personal history of malignant neoplasm of prostate; Z87.891 Personal history of nicotine dependence; Z79.01 Long term (current) use of anticoagulants; Z79.82 Long term (current) use of aspirin; Z79.02 Long term (current) use of antithrombotics/antiplatelets; Z79.84 Long term (current) use of oral hypoglycemic drugs; Z79.899 Other long term (current) drug therapy
CPT/HCPCS: 17250; 36415; 80053; 85025; 85610; 85730; 99283

== ENCOUNTER 2024-09-07 09:32 | Outpatient (REF) | payer MEDICARE, OTHER, SELFPAY ==
--- OUTSIDE RECORDS SUMMARY | 2024-09-07 09:46 | XMS_ITS | Encounter Summary ---
Author Organization [employer] Address [address] [facility] [address] [place] [address] Care Team Providers Care Lettuce Trimmer Name Role Phone Name, Nahum BRODY Primary Care Provider [phone] Reason for Visit * Reason Comments Diabetes Encounter Details Date Type Department Care Team ([facility] st Contact Info) Description 09/07/2024 9:15 AM EDT Office Visit [facility] [address] [place], [place] [id number] Name, MD Nahum [address] [place] [address] Type 2 diabetes mellitus with other circulatory complication, without long-term current use of insulin ([facility]) (Primary Dx); Chronic heart failure with preserved ejection fraction ([facility]) Social History Tobacco Use Types Packs/Day Years Used Date Smoking Tobacco: Never Smokeless Tobacco: Never Tobacco Cessation:Counseling Given: Not Answered Alcohol Use Standard Drinks/Week Comments Yes 0 (1 standard drink = 0.6 oz pur e alcohol) socially Alcohol Answer Date Recorded Frequency of Alcohol Consumption Not on file 12/02/2023 Average Number of Drinks Not on file 024 Frequency of Binge Drinking Not on file 11/16 Score 0 12/02/2023 Depression Answer Date Recorded Patient Health Questionnaire-9 Score 0 12/02/2023 Patient Health Questionnaire-9 Score 0 12/02/2023 Last PHQ-9: Questionnaire Data Not on file 0 12/02/2023 Housing Stability Answer Date Recorded What is your housing situation today? I have oj ibarra 12/02/[address] you li ve. Do you have problems with any of the following? None of the above 12/02/2023 Food Insecurity Answer Date Recorded Within the past 12 months, y ou worried that your food would run out before you got money to buy more: Never True 12/02/2023 Within the past 12 months,th e food you bought just didn't last and you didn't have enough money to get more: Never True Transportation Answer Date Recorded In the past 12 months, has l ack of transportation kept you from medical appts, meetings, work or from getting things needed for daily living? No 12/02/2023 Utilities Answer Date Recorded In the past 12 months, has t he electric, gas, oil or water company threatened to shut off services in your home? No 12/02/2023 Depression Answer Date Recorded Patient Health Questionnaire-2 Score 0 12/02/2023 Internet Access Answer Date Recorded Internet Access Q1 No 12/19/2023 Internet Access Q2 I do not want or need it 05/2023 Sex and Gender Information Value Date Recorded Sex Assigned at Male 02/15/2022 10:29 AM EDT Legal Sex Male 10:29 AM EDT Gender Identity Male 02/15/2022 10:29 AM EDT Sexual Orientation Straight 02/15/2022 10 :29 AM EDT documented as of this encounter Last Filed Vital Signs Vital Sign Reading Time Taken Comments Blood Pressure 134/70 09/07/2024 9:14 AM EDT Pulse 54 09/07/2024 9:14 AM EDT Temperature - - Respiratory Rate 14 09/07/2024 9:14 AM EDT Oxygen Saturation 99% 09/07/2024 9:14 AM EDT Inhaled Oxygen Concentration - - Weight 77.5 kg (170 lb 12.8 oz) 09/07/2024 9:14 AM EDT Height 172.7 cm (5' 8 ) 09/07/2024 9:14 AM EDT Body Mass Index 25.97 09/07/2024 9:14 AM EDT documented in this encounter Progress Notes * Nahum Kelly MD - 09/07/2024 9:15 AM EDT Subjective Patient ID: Abad Rhoades is a 74 y.o. male who presents for Diabetes. Patient comes for a follow-up visit and is doing very well. He is using his medications as prescribed. He is exercising regularly. He is not having any chest pains or shortness of breath. He is not having any side effects to his current dose of Jardiance. His blood sugar is very well-controlled based on his hemoglobin A1c. Medication regimen is metformin and Jardiance. He is dyspnea exertion has improved considerably since he started using Jardiance. Review of Systems Constitutional: Negative for chills, fatigue and fever. HENT: Negative for sore throat. Respiratory: Negative for cough, chest tightness and shortness of breath. Cardiovascular: Negative for chest pain, palpitations and leg swelling. Gastrointestinal: Negative for abdominal pain and blood in stool. Visit Vitals BP 134/70 (BP Location: Left arm, Patient Position: Sitting, BP Cuff Size: Adult) Pulse 54 Resp 14 Ht 5' 8 (1.727 m) Wt 170 lb 12.8 oz (77.5 kg) SpO2 99% BMI 25.97 kg/m?? Smoking Status Never BSA 1.93 m?? Objective Physical Exam Constitutional: Appearance: Normal appearance. Cardiovascular: Rate and Rhythm: Normal rate. Rhythm irregular. Heart sounds: No murmur heard. Pulmonary: Effort: Pulmonary effort is normal. No respiratory distress. Breath sounds: No wheezing, rhonchi or rales. Abdominal: Palpations: Abdomen is soft. Tenderness: There is no abdominal tenderness. Musculoskeletal: Right lower leg: No edema. Left lower leg: No edema. Neurological: Mental Status: He is alert. Lab Results Component Value Date HGBA1C 5.5 09/07/2024 HGBA1C 6.2 (A) 03/07/2024 HGBA1C 6.3 (A) 08/15/2023 HGBA1C 5.9 11/02/2022 HGBA1C 6.8 (A) 03/25/2022 HGBA1C 6.3 (H) 08/07/2020 Assessment/Plan Diagnoses and all orders for this visit: Type 2 diabetes mellitus with other circulatory complication, without long-term current use of insulin ([facility]) Comments: Very well-controlled. Continue current medications. Continue exercising. Avoid sweets and soda. I recommended to check fasting blood work listed below. Orders: - POCT Glucose - POCT HGB A1C - Comprehensive Metabolic Panel; Future - Lipid Panel, Standard; Future Chronic heart failure with preserved ejection fraction ([facility]) Comments: Patient is asymptomatic. Good exercise tolerance. Feeling much better on the Jardiance. Orders: - Lipid Panel, Standard; Future documented in this encounter Plan of Treatment Scheduled Orders Name Type Priority Associated Diagnoses Orde r Schedule Comprehensive Metabolic Panel Lab Routine Type 2 diabetes mellitus with other circulatory complication, without long-term current use of insulin ([facility]) Expected: 09/07/2024 (Approximate), Expires: 09/07/2025 Lipid Panel, Standard Lab Routine Type 2 diabetes mellitus with other circulatory complication, without long-term current use of insulin ([facility]) Chronic heart failure with preserved ejection fraction ([facility]) Expected: 09/07/2024 (Approximate), Expires: 09/07/2025 documented as of this encounter Procedures Procedure Name Priority Date/Time Associated Diagnosis Comments POCT GLYCATED HEMOGLOBIN, TOTAL Routine 09/07/2024 9:15 AM EDT Type 2 diabetes mellitus with other circulatory complication, without long-term current use of insulin ([facility]) POCT GLUCOSE Routine 09/07/2024 9:15 AM EDT Type 2 diabetes mellitus with other circulatory complication, without long-term current use of insulin ([facility]) documented in this encounter Results * POCT HGB A1C (09/07/2024 9:15 AM EDT) Hemoglobin A1C 5.5 4.0 - 6.0 % QC Media Lot # [id number] Lot# Expiration Date [id number] Blood 09/07/2024 9:15 AM EDT Nahum Kelly MD POINT OF CARE TEST ENTER/EDIT OR DERABLES Final Result * POCT Glucose (09/07/2024 9:15 AM EDT) Glucose Blood, POC 145 60 - 200 mg/dL QC Media Lot # [id number] Lot# Expiration Date [id number] Blood Capillary blood specimen / Unknown 09/07/2024 9:15 AM EDT Nahum Kelly MD POINT OF CARE TEST ENTER/EDIT OR DERABLES Final Result documented in this encounter Visit Diagnoses Diagnosis Type 2 diabetes mellitus with other circulatory complication, without long-term current use of insulin (CMS/HCC)- Primary Chronic heart failure with preserved ejection fraction (CMS/HCC) documented in this encounter Additional Health Concerns Assessment Noted Time PHQ-9 Depression Total Score: 0 12/02/19 9:02 AM EDT documented as of this encounter Care Teams Lettuce Trimmer Relationship Specialty Start Date End Date Name, MD Nahum [address] [place] [address] PCP - General Family Medicine 07/11/15 documented as of this encounter
[2024-09-07 11:14] LABS: MANUAL DIFF FLAG NO
[2024-09-07 11:38] LABS: Basophils Percent Auto 0.7 % (0-2); Eosinophils Absolute Auto 0.3 X10*3/uL (0.0-0.4); Eosinophils Percent Auto 4.9 % (0-4); Hematocrit 39.2 % (42.0-52.0); Hemoglobin 13.1 g/dl (14.0-18.0); Imm Gran Abs Auto 0.02 X10*3/uL (0.00-0.03); Imm Gran Pct Auto 0.3 % (0.0-0.4); Lymphocytes Absolute Auto 0.8 X10*3/uL (1.2-4.9); Lymphocytes Percent Auto 13.5 % (20-40); Mean Corpuscular HGB Conc 33.4 g/dl (31.0-36.0); Mean Corpuscular Hemoglobin 31.3 pg (27.0-33.0); Mean Corpuscular Volume 93.6 fL (80.0-98.0); Monocytes Absolute Auto 0.5 X10*3/uL (0.1-1.2); Monocytes Percent Auto 7.8 % (2-11); Neutrophils Absolute Auto 4.5 x10*3/uL (2.0-8.3); Neutrophils Percent Auto 72.8 % (45-73); Platelet Count 154 X10*3/uL (160-400); Red Blood Count 4.19 X10*6/uL (4.60-5.80); Red Cell Distribution Width 14.8 % (11.0-16.0); White Blood Count 6.1 X10*3/uL (4.8-10.8)
[2024-09-07 12:09] LABS: Alanine Aminotransferase 35 U/L (0-40); Albumin Level 4.1 g/dL (3.5-5.0); Alkaline Phosphatase 81 U/L (39-117); Anion Gap 7 (12-20); Aspartate Amino Transferase 22 U/L (5-37); Bilirubin Total 2.9 mg/dL (0.0-1.0); Blood Urea Nitrogen 10 mg/dL (9-16); Calcium 9.2 mg/dL (8.4-10.2); Carbon Dioxide 29 mmol/L (22-29); Chloride 109 mmol/L (96-108); Cholesterol 97 mg/dL (<200); Estimated Glomerular Filt Rate > 60; Glucose Random 129 mg/dL (60-115); HDL Cholesterol 38 mg/dL (>40); LDL Cholesterol Calculated 45 mg/dL (<100); Potassium 3.9 mmol/L (3.3-5.1); Sodium 141 mmol/L (135-145); Total Protein 6.3 g/dL (6.5-8.0); Triglycerides 70 mg/dL (<150)
[2024-09-07 16:41] LABS: Immature Retic Fraction 14.8 % (2.3-13.4); Retic HGB Equivalent 33.9 pg (30.0-35.0); Reticulocyte Percent 1.8 % (0.5-1.8); Reticulocytes Absolute 0.072 X10*6/uL (0.026-0.095)
== END 2024-09-07 09:33 | disposition home or self-care (01) ==
LOC: HO.HHCL 09:32
PROVIDERS: Visit Provider Internal Medicine Geriatric Medicine
DX: R06.09 Other forms of dyspnea (principal); E11.59 Type 2 diabetes mellitus with other circulatory complications; I50.32 Chronic diastolic (congestive) heart failure; E80.6 Other disorders of bilirubin metabolism
CPT/HCPCS: 36415; 80053; 80061; 85025; 85045

== ENCOUNTER 2024-09-07 13:24 | Outpatient (REF) | payer MEDICARE, OTHER, SELFPAY | END 2024-09-07 13:25 | disposition home or self-care (01) | LOC: HO.HHCL 13:24 | PROVIDERS: Visit Provider Internal Medicine Geriatric Medicine | DX: Z13.89 Encounter for screening for other disorder (principal) ==

== ENCOUNTER 2024-09-25 10:48 | Outpatient (REF) | payer MEDICARE, OTHER, SELFPAY ==
[2024-09-25 12:12] LABS: PSA,Total (Free>4and<10) 5.69 ng/mL (0.00-4.00)
--- OUTSIDE RECORDS SUMMARY | 2024-09-25 12:46 | XMS_ITS | Clinical Summary ---
Author Organization [address] [place] [address] [place] [phone] Phone Care Team Providers Care Second Butler Name Role Phone Name, Nahum BRODY Primary Care Provider [phone] Allergies No known active allergies Medications aspirin 81 mg EC tablet Take 81 mg by mouth daily. Active FREESTYLE LANCETS MISC 1 Each by Does not apply route 2 times daily. 05/24/2013 Active blood sugar diagnostic (FreeStyle Lite Strips) test strip 1 Strip by Does not apply route 2 times daily. 05/24/2013 Active blood-glucose meter kit by Does not apply route. Use once a day as needed 10/09/2010 Active atenoloL (TENORMIN) 50 mg tablet Take 50 mg by mouth daily. 06/17/2021 Active atorvastatin (LIPITOR) 80 mg tablet TAKE 1 TABLET BY MOUTH DAILY 09/05/2017 Active ferrous sulfate 142 mg ER tablet Take 1 tablet by mouth daily. Active finasteride (PROSCAR) 5 mg tablet Take 5 mg by mouth daily. 01/31/2021 Active furosemide (LASIX) 40 mg tablet Take 40 mg by mouth daily. 02/20/2021 Active metFORMIN (GLUCOPHAGE) 500 mg tablet Take 500 mg by mouth daily. Active omeprazole (PriLOSEC) [address] capsule Take 1 Cap by mouth daily. 05/13/2015 Active Eliquis 5 mg tablet TAKE 1 TABLET BY MOUTH TWICE A DAY 180 tablet 3 04/26/2024 Active empagliflozin (Jardiance) 10 mg tablet Take 1 tablet (10 mg total) by mouth 1 (one) time each day in the morning. Active amLODIPine (NORVASC) 5 mg tabletIndication s:Atheroscleroti c heart disease of robinson coronary artery without angina pectoris TAKE 1 TABLET BY MOUTH EVERY DAY 90 tablet 2 07/09/2024 Active Active Problems Problem Noted Date Diagnosed Date Chronic heart failure with p reserved ejection fraction (CMS/HCC V24, CMS/HCC V28) 04/02/2021 Overview (04/27/2024): -Hospitalized at [facility] from 12/16/2020 to 12/17/2020 for heart failure exacerbation. He was seen by my partner from cardiology. He was given 1 dose of IV Lasix and felt much better. He was discharged on Lasix [address] of his hydrochlorothiazide-in retrospect, he thinks he may have run out of hydrochlorothiazide early prior to that admission and had not been taking it for the preceding couple of weeks -A CT angiography done during that admission showed small bilateral pleural effusions with mild bibasilar atelectasis but no pulmonary embolism. His viral panel for respiratory viruses was negative -On 03/22/2024 patient underwent a transthoracic echocardiogram. This revealed that the left ventricle cavity size is normal. There is mild, concentric left ventricular hypertrophy. There is normal left ventricular regional wall motion. Left ventricular systolic function is in the normal range. LVEF estimated at 67%. The right ventricle cavity is mildly enlarged. Right ventricle systolic function is mildly reduced. There is no hemodynamically significant valve disease. There is moderate biatrial enlargement. Compared to prior echocardiogram on 11/2020 findings are unchanged. Assessment & Plan (04/27/2024 9:19 AM EST): Patient is euvolemic on exam. Also reports feeling even better after starting the SGLT2 inhibitor. Patient had echocardiogram prior to this appointment which showed no change from previous echocardiogram. LVEF in normal range. Please see other details of echocardiogram above. Orders: Ambulatory referral to Cardiology ECG 12 lead Diverticulitis of colon without hemorrhage 01/06 Overview (03/09/2024): Incidental finding at colonoscopy 01/06/2015. Chronic atrial fibrillation (CMS/[facility] V24, [facility]/ [facility] V28) 02/15/2014 Overview (03/09/2024): -Had an episode after his CABG spontaneously converting to sinus for which she was anticoagulated for 3 months -More recently in work-up of his increased dyspnea on exertion symptoms, he had a repeat Holter monitor on 11/04/2020 which showed that he had in fact reverted back into atrial fibrillation throughout the recording period, with average heart rate 61 bpm and maximum heart rate of only 96 bpm, minimum heart rate of 39 bpm with longest RR interval of 2.6 seconds, symptoms of shortness of breath correlated to rate controlled atrial fibrillation with heart rates in the range of 56 to 69 bpm -On Eliquis for CVA prophylaxis and atenolol for rate control Last Assessment & Plan: Bradycardic ventricular response but without major symptoms of lightheadedness or syncope, continue monitoring, continue atenolol at current dose of 50 mg daily for rate control but would back off on dose or discontinue should he develop any symptoms; Eliquis 5 twice daily for CVA prophylaxis Assessment & Plan (04/27/2024 9:19 AM EST): Patient still has a bradycardic ventricular response but he reports that he exercises every day and has not had any new or worse symptoms. Denies major lightheadedness or syncope. Should continue on his current dosage of atenolol 50 mg as well as Eliquis 5 mg twice daily. Patient denies any abnormal bleeding. He has a [id number] score of 5. Orders: ECG 12 lead Coronary artery disease invo lving robinson coronary artery of robinson heart without angina pectoris 02/15/2014 Overview (03/09/2024): -Status post anginal symptoms with abnormal stress test in 2013 -Cardiac cath in January 2014 showed 75% left main, 70% OM1, 70% proximal RCA, 90% mid RCA -Status post CABG in January 2014 with CARIAS to the LAD, radial to the RPDA, vein graft to the ramus -More recently has had symptoms of increasing dyspnea on exertion for which he saw Lizzeth White NP in September 2020-Lizzeth started him on Norvasc 5 mg as an antianginal during that visit -She sent him for a repeat cardiac cath which was performed on 10/17/2020 and showed 90% distal left main, 70% proximal LAD, 85% mid circumflex, 95% mid RCA, 85% distal RCA; patent CARIAS to the LAD, patent vein graft to the OM1/ramus, patent radial graft to the RPDA with normal flow to the RPDA and normal runoff however there was disease involving the origin of the RPL V jeopardizing retrograde flow to this vessel that is unlikely to be of clinical significance -Medical management was pursued -An echocardiogram was also ordered and obtained on 11/28/2020 (I independently reviewed the images) and it showed normal biventricular size and systolic function, mild, concentric left ventricular hypertrophy, normal left ventricular regional wall motion with an ejection fraction of 60 to 65%, no hemodynamically significant valve disease with just mild mitral regurgitation, normal pulmonary artery systolic pressure 33 mmHg, mild left atrial enlargement Last Assessment & Plan: No recurrent anginal symptoms, continue atorvastatin 80 mg at bedtime, aspirin 81 mg daily; updated fasting lipid profile ordered Assessment & Plan (04/27/2024 9:20 AM EST): Patient does not have any recurrent anginal symptoms, continue on the atorvastatin, baby aspirin, as well as beta-gertrudis. Instructed to call 911 or go to the emergency room should the patient begin to experience chest pain or pressure lasting greater than 10 minutes does not resolve with rest. Abnormal stress ECG 01/14/2014 Diabetic neuropathy ([facility] V24, [facility] V28) 0 04/24/2012 Hyperlipidemia with target LDL less than 100 10/2012 Overview (03/09/2024): IMO update Last Assessment & Plan: I do not have a recent lipid profile. If 1 can be sent from his PCPs office, we greatly appreciate it. Continue high intensity statin given his known coronary artery disease. Diabetes mellitus type 2, co ntrolled, with complications ([facility] V24, [facility] V28) 12/17/2010 External hemorrhoids 07/20/2010 Lyme disease 07/20/2010 Overview (03/09/2024): 2007 Esophageal reflux 05/31/2005 Essential hypertension, benign 05/31/2005 Overview (03/09/2024): Last Assessment & Plan: Suboptimally controlled today but may be whitecoat phenomenon, recommended blood pressure checks at home-no more than 2-3 times a week in a resting state at different times of the day if possible; continue current regimen of amlodipine 5 mg daily, atenolol 50 mg daily, furosemide 40 mg daily for the time being Assessment & Plan (04/27/2024 9:20 AM EST): Educated on the importance of diet lifestyle to help further assist in reducing blood pressure. The patient was encouraged to follow low-salt low-fat diet, make purposeful strides towards weight loss, and engage in routine aerobic exercise as tolerated. Immunizations Name Administration Dates Next Due Influenza trivalent, 0.5mL, preservative free (Fluarix; FluLaval; Fluzone) ages 6mo and older (Afluria) 3 years and older 04/02/2015,02/15/2013,12/24/2011,05/06,01/30/2010,01/13/2009,02/08/2008 ,02/18/2007,02/25/2005 Influenza, Unspecified 01/23/2014 Moderna SARS-CoV-2 COVID-19, mRNA, LNP-S, preservative free 02/15/2022,08/25/2021,12/18/2020,09/04,08/07/2020 Pneumococcal polysaccharide 23 valent (Pneumovax 23) 2yo and older 06/15/2013 Tdap Tetanus diptheria acell ular pertussis (Boostrix; Adacel) 7yo and older 11/07/2007 Zoster Live 04/24/2012 Surgical History Surgery Date Site/Laterality Comments TONSILLECTOMY PROCEDURE: HISTORICAL TONSILLECTOMY CHOLECYSTECTOMY PROCEDURE: HISTORICAL CHOLECYSTECTOMY ADENOIDECTOMY PROCEDURE: HISTORICAL ADENOIDECTOMY HERNIA REPAIR PROCEDURE: HISTORICAL HERNIA REPAIR/MANSI HEMORRHOID SURGERY PROCEDURE: HISTORICAL HEMMORROIDECTOMY CORONARY ARTERY BYPASS GRAFT 2013 PROCEDURE: HISTORICAL CABG COLONOSCOPY 09/17/2004 PROCEDURE: HISTORICAL COLONOSCOPY; COMMENT: normal UPPER GASTROINTESTINAL ENDOSCOPY 09/17/2004 PROCEDURE: SD UPPER GI ENDOSCOPY PERFORMED; COMMENT: normal with normal duodenal bx. COLONOSCOPY 2014 PROCEDURE: HISTORICAL COLONOSCOPY; COMMENT: diverticulosis Medical History Medical History Date Comments Unspecified essential hypertension DX:Unspecified essential hypertension Other abnormal blood chemistry 01/25/2007 D X:Other abnormal blood chemistry Diverticulosis of colon (wit hout mention of hemorrhage) 01/06/2015 DX:Diverticulosis of colon ( without mention of hemorrhage); COMMENT: Incidental finding at colonoscopy 01/06/2015. Depression, unspecified DX:Depre ssion, unspecified Leukocytosis, unspecified type D X:Leukocytosis, unspecified type Diabetes mellitus type 2, co ntrolled, with complications [place] [place] [facility] [place]) DX:Diabetes mellitus type 2, controlled, with complications ([facility]); COMMENT: w/o alf current use of insulin Muscle cramps DX:Muscle cramps COPD (chronic obstructive pu lmonary disease) ([facility] V24, [facility] [place]28) DX:COPD (chronic o bstructive pulmonary disease) ([facility]) Anxiety DX:Anxiety Family History Medical History Relation Name Comments Lung cancer Father Esophageal cancer Mother Relation Name Status Comments Brother Alive Diverticulitis Daughter Alive Father (Age 64) Lung Cance r Mother (Age 81) Esophageal Cancer Sister Alive Son Alive Social History Tobacco Use Types Packs/Day Years Used Date Smoking Tobacco: Former Cigarettes Q uit: 04/18/1985 Smokeless Tobacco: Never Alcohol Use Standard Drinks/Week Comments Yes 0 (1 standard drink = 0.6 oz pur e alcohol) Sex and Gender Information Value Date Recorded Sex Assigned at Not on file Legal Sex Male 10:11 PM EST Gender Identity Not on file Sexual Orientation Not on file Obstetrics History Last Filed Vital Signs Vital Sign Reading Time Taken Comments Blood Pressure 124/80 04/27/2024 8:34 AM EST Pulse 45 04/27/2024 8:34 AM EST Temperature - - Respiratory Rate - - Oxygen Saturation 96% 04/27/2024 8:34 AM EST Inhaled Oxygen Concentration - - Weight 83 kg (183 lb) 04/27/2024 8:34 AM EST Height 167.6 cm (5' 6 ) 04/27/2024 8:34 AM EST Body Mass Index 29.54 04/27/2024 8:34 AM EST Plan of Treatment Upcoming Encounters Date Type Department Care Team (Late st Contact Info) Description 03/28/2025 8:50 AM EST Office Visit [facility] [address] [facility] [address] [place] [phone] Racheal Shay MD [address] [place] [address] Health Maintenance Due Date Last Done Comments Diabetes: Annual Foot Exam 1960 Diabetes: Annual Retina Eye Exam 1960 Falls Risk Assessment 03/27/2022 Medicare Annual Wellness Visit 03/27/2022 Social Influencers of Health Screening 03/27/2022 COVID-19 Vaccine (8 - Moderna risk season) 2024 02/01/2024, 01/28/2023, 02/15/2022, Additional history exists Diabetes: Annual Urine Albumin-Creatinine Ratio (uACR) 08/14/2024 08/15/2023 Diabetes: Blood Sugar Control Test (HGBA1C) 09/04/2024 03/07/2024, 08/07/2020 Depression Screening 12/01/2024 12/02/2023 Colorectal Cancer Screening: Colonoscopy 01/06/2025 01/06/2015 Diabetes: Annual GFR (Glomerular Filtration Rate) 03/31/2025 03/31/2024, 03/07/2024, 12/23/2020 Hypertension/CHF/CAD Annual BMP Blood Test 03/31/2025 03/31/2024, 03/07/2024, 12/23/2020 Cholesterol Screening (Lipid Panel) 03/07/2029 03/07/2024, 08/07/2020 DTaP,Tdap,and Td Vaccines (4 - Td or Tdap) 12/07/2031 12/06/2021, 01/06/2018, 11/07/2007 Abdominal Aortic Aneurysm (AAA) Screen Completed 10/17/2014 Zoster Vaccines Completed 10/09/2019, 11/2019, 04/24/2012 RSV Immunization Adult Patients Completed 01/28/2023 Hepatitis C Screening Completed 08/15/2023, 024 Pneumococcal Vaccine: 50+ Years Completed 08/15/2023, 11/17/2015, 06/15/2013 Influenza Vaccine Completed 02/01/2024, , 02/08/2022, Additional history exists HIB Vaccines Aged Out No longer eligi ble based on patient's age to complete this topic HPV Vaccines Aged Out No longer eligi ble based on patient's age to complete this topic Hepatitis A Vaccines Aged Out No long er eligible based on patient's age to complete this topic Hepatitis B Vaccines Aged Out No long er eligible based on patient's age to complete this topic IPV Vaccines Aged Out No longer eligi ble based on patient's age to complete this topic MMR Vaccines Aged Out No longer eligi ble based on patient's age to complete this topic Meningococcal ACWY Vaccine Aged Out N o longer eligible based on patient's age to complete this topic Meningococcal B Vaccine Aged Out No l onger eligible based on patient's age to complete this topic RSV Immunization Patients Under 20 months Aged Out No longer eligible based on patient's age to complete this topic Varicella Vaccines Aged Out No longer eligible based on patient's age to complete this topic Procedures Procedure Name Priority Date/Time Associated Diagnosis Comments HEPATITIS C SCREENING Routine 08/15/2023 URINE ALBUMIN CREATININE RATIO Routine 08/15/2023 ANNUAL BMP BLOOD TEST Routine 12/23/2020 HEMOGLOBIN A1C Routine 08/07/2020 LIPID PANEL Routine 08/07/2020 COLONOSCOPY Routine 01/06/2015 ABDOMINAL AORTIC ANEURYSM SCRREN Routine 10/17/2014 from Last 3 Months or Most Recently Relevant to Health Maintenance Results * Urine Albumin Creatinine Ratio (08/15/2023) Urine Albumin Creatinine Ratio Abstracted Historical Provider HEALTH MAINTENANCE Final Result * Hepatitis C Screening (08/15/2023) Hepatitis C Screening Abstracted Historical Provider HEALTH MAINTENANCE Final Result * Annual BMP Blood Test (12/23/2020) Pathologist [facility] Annual BMP Blood Test Abstracted Result [facility] Provider HEALTH MAINTENANCE Final Result * Hemoglobin A1c (08/07/2020) [facility] Hemoglobin A1C 0.0 % Comment:No Interpretation Blood Venous blood specimen / Unknown Result [facility] Provider LAB BLOOD ORDERABLES Lacey l Result * Lipid panel (08/07/2020) [facility] LDL/HDL Ratio 0 Comment:No Interpretation Triglycerides 0 mg/dL Comment:No Interpretation Cholesterol 0 mg/dL Comment:No Interpretation HDL 0 mg/dL Comment:No Interpretation LDL Cholesterol 0 mg/dL Comment:No Interpretation Blood Venous blood specimen / Unknown Result [facility] Provider LAB BLOOD ORDERABLES Lacey l Result * Colonoscopy (01/06/2015) [facility] Colonoscopy No Interpretation , Abstracted Anatomical Region Laterality Modality Other Result [facility] Provider HEALTH MAINTENANCE Final Result * Abdominal Aortic Aneurysm Screen (10/17/2014) [facility] Abdominal Aortic Aneurysm (AAA) Screening Abstracted Anatomical Region Laterality Modality Other Result [facility] Provider HEALTH MAINTENANCE Final Result from Last 3 Months or Most Recently Relevant to Health Maintenance Insurance MEDICARE [employer] Care Teams Second Butler Relationship Specialty Start Date End Date Name, MD Nahum [address] [facility] [address] PCP - General Internal Medicine 01/17/14
[2024-09-26 13:33] LABS: Free Prostate Spec Ag 0.3 ng/mL; Percent Free Prostate Spec Ag 6 % (calc) (>25); Prostate Specific Ag Total 4.7 ng/mL (< OR = 4.0)
== END 2024-09-25 10:49 | disposition home or self-care (01) ==
LOC: HO.LAB 10:48
PROVIDERS: PCP Internal Medicine Geriatric Medicine; Visit Provider Urology
DX: Z12.5 Encounter for screening for malignant neoplasm of prostate (principal); R97.20 Elevated prostate specific antigen [PSA]
CPT/HCPCS: 36415; 84153; 84154

== ENCOUNTER 2024-10-16 09:55 | Outpatient (AMB) | payer MEDICARE, OTHER, SELFPAY ==
--- NOTE | 2024-10-16 09:55 | A.OFFVIS_ITS ---
Intake Visit Reasons: 6M PSA follow up Intake Note: Patient is present for 6m PSA Urology Medication:NONE Antibiotic Allergy:NONE Blood Thinner:ELIQUIS,ASPIRIN LABS 09/25/24 : FREE PSA :6 TOTAL PSA :4.7 Order Entry Representative Required: No Accompanied by: Self / Same As Patient Allergies No Known Allergies Allergy (Verified 10/16/24 09:55) HPI Comments Details: Abad is a pleasant male. He is a patient of Dr. Kelly. He has seen for the following urologic conditions - elevated PSA Discussed PSA PCPT calculator shows 35% prostate cancer given low free PSA At this point in time he would like to repeat PSA in 6 months May benefit from prostate MRI if PSA would continue to rise Remains on low-dose finasteride Elevated PSA PSA 08/09 4.6, 03/11 4.4 7%, 10/10 4.7 6% F+ Consistent with large prostate Discussed prostate biopsy versus trending PSA level Brother with prostate cancer PFSH Medical History Family history of prostate cancer Atrial fibrillation COVID-19 vaccine administered History of cataract Depression Diabetes High cholesterol HTN (hypertension) Surgical History S/P triple vessel bypass Hx of cholecystectomy Family History Father Cancer Brother Cancer Mother Esophageal cancer Other Prostate cancer Social History (System 08/21/24 @ 11:25 by Ritu Rhodes) Household Members: Spouse Housing: House Are you a primary rn complex care to a significant other at home: No Do you presently have visiting nurse or other home services: No Alcohol intake: current Alcohol intake frequency: a few times a week Alcohol type: beer Patient Tobacco Use Status: Former Tobacco user Tobacco use type: Cigarette Cigarette Packs Per Day: 2.5 service: Yes Current occupational status: retired Review of Systems Const Denies chills and Denies fever(s) Card Reports no additional complaints and Denies syncope Resp Denies cough GI Denies abdominal pain and Denies heartburn Reports as per HPI and Denies change in libido Neuro Denies syncope Psych Denies change in libido Endo Denies change in libido Physical Exam Const General: cooperative, healthy appearing, comfortable and no acute distress Orientation/consciousness: patient oriented x3 HEENT Face and sinus: Yes normal facial exam Mouth: moist mucous membranes Neck Neck: Yes normal visual inspection, Yes full ROM and Yes trachea midline Chest Chest palpation & inspection: normal inspection of the chest Resp Effort & Inspection: normal respiratory effort, able to speak in complete sentences and no respiratory distress GI Inspection: Yes normal to inspection Back/Spine/Pelvis Cervical Spine: normal cervical lordosis Thoracic/Lumbar Spine: thoracic and lumbar spine normal to inspection Skin General skin exam: no rashes or lesions noted Neuro General: patient oriented x3, gait normal, tone normal and moves all extremities Extrem General: Yes normal to inspection and Yes capillary refill normal Assessment & Plan Assessment & Plan (1) Elevated PSA: Code(s): R97.20 - Elevated prostate specific antigen [PSA] Category: Medical Plan Six-month follow-up PSA Orders: Orders PSA,Total (Free>4and<10) 6 Months R97.20 - Elevated prostate specific antigen [PSA] Medications: Changed From finasteride 1.25 mg PO DAILY R97.20 - Elevated prostate specific antigen [PSA] To finasteride 1.25 mg (1/4 x 5 mg) PO DAILY 30 tabs 2RF 90 days R97.20 - Elevated prostate specific antigen [PSA] Patient Instructions: This note is constructed using voice recognition software. While every effort has been made to ensure accuracy plastics engineering teacher errors may have been included. Imaging studies, laboratory and physical exam results were discussed and reviewed in detail. No major barriers to patient understanding were identified. An opportunity to ask questions regarding the treatment plan was provided. All questions were answered. The patient expressed understanding and agreement with the above treatment plan. The patient is aware they should contact our office by phone for worsening of their current condition or the appearance of new urologic symptoms. Compliance is encouraged with any medications and followup testing that is ordered. It is a privilege to participate in the urologic care of your patient. If you have any questions or concerns regarding treatment for the above conditions, or other urologic issues, please do not hesitate to contact me. The office telephone contact is [phone]. Sincerely, Dr Bro Harrell MD, [facility] - Urology Compassionate Specialist Care for the Genitourinary System Coding Level of Care Code Est Pt Level 3 (05452) Complex EM visit Add On G2211 Diagnoses Elevated PSA R97.20
--- OUTSIDE RECORDS SUMMARY | 2024-10-16 10:53 | XMS_ITS | Encounter Summary ---
Author Organization [employer] Address [address] [place] [address] [address] [place] [address] Care Team Providers Care Public Health Informatician Name Role Phone Name, Nahum BRODY Primary Care Provider [phone] Reason for Visit * Reason Comments Med Change Request Encounter Details Date Type Department Care Team ([facility] Contact Info) Description 01/03/2024 Refill C [facility] [address] [place] [address] Obed Valenzuela MD [address] [place] [address] Social History Tobacco Use Types Packs/Day Years Used Date Smoking Tobacco: Never Smokeless Tobacco: Never Alcohol Use Standard Drinks/Week [...] AM EDT documented as of this encounter Plan of Treatment Not on file documented as of this encounter Visit Diagnoses Not on filedocumented in this encounter Additional Health Concerns Assessment Noted Time PHQ-9 Depression Total Score: 0 12/02/19 24 9:02 AM EDT documented as of this encounter Care Teams Public Health Informatician Relationship Specialty Start Date End Date Name, MD Nahum [address] [place] [address] PCP - General Family Medicine 07/11/15 documented as of this encounter
--- OUTSIDE RECORDS SUMMARY | 2024-10-16 10:53 | XMS_ITS | Clinical Summary ---
Author Organization [address] [place] [address] [place] [phone] Phone Care Team Providers Care Journeyman Pipe Fitter Name Role Phone Name, Nahum BRODY Primary Care Provider [phone] Allergies No known active allergies Medications aspirin [...] mg tabletIndication s:Atheroscleroti c heart disease of [place] coronary artery without angina pectoris TAKE 1 TABLET BY MOUTH EVERY DAY 90 tablet 2 07/09/2024 Active Active Problems Problem Noted Date Diagnosed Date Chronic heart failure with p reserved ejection fraction (CMS/HCC V24, CMS/HCC V28) 04/02/2021 Overview (04/27/2024): -Hospitalized at [facility] from 12/16/2020 to 12/17/2020 for heart [...] finding at colonoscopy 01/06/2015. Chronic atrial fibrillation (CMS/[facility] V24, [facility] V28) 02/15/2014 Overview (03/09/2024): -Had an [...] denies any abnormal bleeding. He has a [id number] score of 5. Orders: ECG 12 lead Coronary artery disease invo lving [place] coronary artery of [place] heart without angina pectoris 02/15/2014 Overview (03/09/2024): [...] rest. Abnormal stress ECG 01/14/2014 Diabetic neuropathy ([facility] V24, [facility] V28) 0 04/24/2012 Hyperlipidemia with target LDL less than 100 10/2012 Overview (03/09/2024): IMO update Last Assessment & Plan: I do not have a recent lipid profile. If 1 can be sent from his PCPs office, we greatly appreciate it. Continue high intensity statin given his known coronary artery disease. Diabetes mellitus type 2, co ntrolled, with complications ([facility] V24, [facility] V28) 12/17/2010 External hemorrhoids 07/20/2010 Lyme disease [...] COMMENT: normal UPPER GASTROINTESTINAL ENDOSCOPY 09/17/2004 PROCEDURE: PA UPPER GI ENDOSCOPY PERFORMED; COMMENT: normal with [...] 2, co ntrolled, with complications [place] [place] [facility] [place] DX:Diabetes mellitus type 2, controlled, with complications ([facility]); COMMENT: w/o penitentiary current use of insulin Muscle cramps DX:Muscle cramps COPD (chronic obstructive pu lmonary disease) ([facility] [place], [facility] [place] DX:COPD (chronic o bstructive pulmonary disease) ([facility]) Anxiety DX:Anxiety Family History Medical History Relation [...] Description 03/28/2025 8:50 AM EST Office Visit [facility] [address] [facility] [address] [place] [phone] Racheal Shay MD [address] [place] [address] Health Maintenance Due Date Last Done Comments [...] 09/04/2024 03/07/2024, 08/07/2020 Depression Screening 12/01/2024 12/02/2023 Influenza Vaccine (#1) 2024 , 01/28/2023, 02/08/2022, Additional history exists Colorectal Cancer Screening: Colonoscopy 01/06/2025 01/06/2015 Diabetes: [...] Vaccine: 50+ Years Completed 08/15/2023, 11/17/2015, 06/15/2013 HIB Vaccines Aged Out No longer eligi [...] * Annual BMP Blood Test (12/23/2020) Pathologist [facility] Annual BMP Blood Test Abstracted Result [facility] Provider HEALTH MAINTENANCE Final Result * Hemoglobin A1c (08/07/2020) [facility] Hemoglobin A1C 0.0 % Comment:No Interpretation Blood Venous blood specimen / Unknown Result [facility] Provider LAB BLOOD ORDERABLES Lacey l Result * Lipid panel (08/07/2020) [facility] LDL/HDL Ratio 0 Comment:No Interpretation Triglycerides 0 mg/dL Comment:No Interpretation Cholesterol 0 mg/dL Comment:No Interpretation HDL 0 mg/dL Comment:No Interpretation LDL Cholesterol 0 mg/dL Comment:No Interpretation Blood Venous blood specimen / Unknown Result [facility] Provider LAB BLOOD ORDERABLES Lacey l Result * Colonoscopy (01/06/2015) Pathologist [facility] Colonoscopy No Interpretation , Abstracted Anatomical Region Laterality Modality Other Result [facility] HEALTH MAINTENANCE Final Result * Abdominal Aortic Aneurysm Screen (10/17/2014) [facility] Abdominal Aortic Aneurysm (AAA) Screening Abstracted Anatomical Region Laterality Modality Other Result [facility] Provider HEALTH MAINTENANCE Final Result from Last 3 Months or Most Recently Relevant to Health Maintenance [facility] Care Teams Journeyman Pipe Fitter Relationship Specialty Start Date End Date Name, MD Nahum 4 [place], [place] PCP - General Internal Medicine 01/17/14
== END 2024-10-16 10:30 | disposition home or self-care (01) ==
LOC: HO.HUSH 09:55
PROVIDERS: PCP Internal Medicine Geriatric Medicine; Visit Provider Urology
DX: R97.20 Elevated prostate specific antigen [PSA] (principal); Z13.9 Encounter for screening, unspecified
CPT/HCPCS: 99213; G2211

== ENCOUNTER → 2024-10-16 09:55 | Outpatient (BNVA) | payer MEDICARE, OTHER, SELFPAY | PROVIDERS: PCP Internal Medicine Geriatric Medicine; Visit Provider Urology | DX: R97.20 Elevated prostate specific antigen [PSA] (principal) | CPT/HCPCS: 81003; 99212 ==

== ENCOUNTER 2025-03-05 09:29 | Outpatient (REF) | payer MEDICARE, OTHER, SELFPAY ==
[2025-03-05 11:47] LABS: PSA,Total (Free>4and<10) 5.61 ng/mL (0.00-4.00)
[2025-03-06 13:23] LABS: Free Prostate Spec Ag 0.3 ng/mL; Percent Free Prostate Spec Ag 6 % (calc) (>25)
== END 2025-03-05 09:30 | disposition home or self-care (01) ==
LOC: HO.10HDL 09:29
PROVIDERS: Visit Provider Urology
DX: Z12.5 Encounter for screening for malignant neoplasm of prostate (principal); R97.20 Elevated prostate specific antigen [PSA]
CPT/HCPCS: 36415; 84153; 84154

== ENCOUNTER 2025-04-02 12:46 | Outpatient (AMB) | payer MEDICARE, OTHER, SELFPAY ==
--- OUTSIDE RECORDS SUMMARY | 2025-03-28 08:50 | XMS_ITS | Encounter Summary ---
Author Organization [facility] Address [address] [place] [address] Care Team Providers Care Tennis Court Attendant Name Role Phone Name, Nahum BRODY Primary Care Provider [phone] Reason for Visit * Reason Comments Follow-up Encounter Details Date Type Department Care Team (Late st Contact Info) Description 03/28/2025 8:50 AM EST Office Visit [facility] - [address] [place] [phone] Racheal Harmon MD [address] [place] [address] [place] [place] [phone] Chronic atrial fibrillation (CMS/HCC V24, CMS/HCC V28) (Primary Dx); Essential hypertension, benign; Chronic heart failure with preserved ejection fraction (CMS/HCC V24, CMS/HCC V28); Coronary artery disease involving [place] coronary artery of [place] heart without angina pectoris Social History Tobacco Use Types Packs/Day Years Used Date Smoking Tobacco: Former Cigarettes 0 Q uit: 04/18/1985 Smokeless Tobacco: Never Alcohol Use Standard Drinks/Week Comments Yes 0 (1 standard drink = 0.6 oz pur e alcohol) Sex and Gender Information Value Date Recorded Sex Assigned at Not on file Legal Sex Male 10:11 PM EST Gender Identity Not on file Sexual Orientation Not on file documented as of this encounter Last Filed Vital Signs Vital Sign Reading Time Taken Comments Blood Pressure 140/72 03/28/2025 8:54 AM EST Pulse 41 03/28/2025 8:54 AM EST Temperature - - Respiratory Rate - - Oxygen Saturation 96% 03/28/2025 8:54 AM EST Inhaled Oxygen Concentration - - Weight 82.1 kg (181 lb) 03/28/2025 8:54 AM EST Height 170.2 cm (5' 7 ) 03/28/2025 8:54 AM EST Body Mass Index 28.35 03/28/2025 8:54 AM EST documented in this encounter Ordered Prescriptions Prescription Sig Dispense Quantity Refills Last Filled Start Date End Date valsartan (DIOVAN) 40 mg tablet Take 1 tablet (40 mg total) by mouth 1 (one) time each day. 90 tablet 03/28/2025 03/28/2026 documented in this encounter Progress Notes * Rachela Harmon MD - 03/28/2025 8:50 AM ESTAssociated Problem(s): Essential hypertension, benign Suboptimally controlled today and has been on prior visits as well. I asked him to check his blood pressures at home no more than 3 times a week and demonstrated proper technique. At this point, I think he could be on better guideline directed therapy. It is unclear why he is not on CORI inhibitor or ARB- this would be very important for renal protection especially because he is diabetic. Therefore, I am starting him on valsartan 40 mg daily. Will have him repeat a basic metabolic panel in 2 to 4weeks. In the interim, I am also decreasing his atenolol. He is quite bradycardic at baseline and there is no absolute indication for this medication. I am decreasing it to 25 mg. Ideally I would like to get him on a regimen of amlodipine and valsartan alone and discontinue atenolol altogether. Hiswife is going to send me a [employer] message detailing his blood pressures over the next month. If blood pressures are well- controlled, my bias would be to discontinue atenolol altogether and continue f orward with valsartan and amlodipine. Orders: Basic metabolic panel; Future * Racheal Harmon MD - 03/28/2025 8:50 AM ESTAssociated Problem(s): Chronic heart failure with preserved ejection fraction (CMS/HCC V24, CMS/HCCV28) Patient is well-controlled and has not had any recent heart failure hospitalizations or signs of volume overload. A since I am making other medication changes though I do not want to do too much at once. When I get the message from his in a month, if his volume status remains stable, my bias would be to switch his diuretic dosing to as needed only. Continue current Jardiance, adding valsartan as above. * Racheal Harmon MD - 03/28/2025 8:50 AM ESTAssociated Problem(s): Coronary artery disease involving [place] coronary artery of [place] heart without angina pectoris No recurrent anginal symptoms, continue current statin. 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 * Racheal Harmon MD - 03/28/2025 8:50 AM ESTAssociated Problem(s): Chronic atrial fibrillation (CMS/HCC V24, CMS/HCC V28) Continue Eliquis for CVA prophylaxis. Patient is bradycardic so I am cutting back on atenolol. Orders: ECG 12 lead * Racheal Harmon MD - 03/28/2025 8:50 AM EST HPI: Don Rhoades is a 75 y.o. male who presents for cardiac follow up of: 1. Coronary artery disease-status post CABG 2. HFpEF 3. Chronic A-fib 4. Hypertension 5. Hyperlipidemia He also has a past medical history significant for diabetes, he has benign prostatic hypertrophy, GERD, recently diagnosed with CLL and followed by Dr. Boss. Previous appointment he had just been diagnosed with non-Hodgkin's lymphoma and was undergoing more treatment. He denied cardiac symptoms at his previous appointment. He presents today with his . All in all, he reports he is doing very well from a cardiac standpoint. He exercises regularly-doing strength training. He also is an avid boxer and does boxing workouts daily for an hour or so. He denies any chest pain or shortness of breath with activity. He denies palpitations, lightheadedness, syncope, PND, orthopnea. He denies any major bleeding but does notice superficial bruising and is wondering if he can come off of baby aspirin. ACTIVE MEDICATIONS: Medications Taking[1] PAST MEDICAL HISTORY: Patient Active Problem List Diagnosis Date Noted Chronic heart failure with preserved ejection fraction (CMS/HCC V24, CMS/HCC V28) 04/02/2021 -Hospitalized at [facility] from 12/16/2020 to 12/17/2020 for heart failure [...] systolic function is in the normal range. LVEFestimated at 67%. The right ventricle cavity is mildly enlarged. Right ventricle systolic function is mildly reduced. There is no hemodynamically significant valve disease. There is moderate biatrialenlargement. Compared to prior echocardiogram on 11/2020 findings are unchanged. Diverticulitis of colon without hemorrhage 01/06/2015 Incidental finding at colonoscopy 01/06/2015. Chronic atrial fibrillation (CMS/HCC V24, CMS/HCC V28) 02/15/2014 -Had an episode after his CABG spontaneously converting to sinus for which she was anticoagulated for 3 months -More recently in work-up of his increased dyspnea on exertion symptoms, he had a repeat Holter monitor on 11/04/2020 which showed that he had in fact reverted back into atrial fibrillation throughoutthe recording period, with average heart rate 61 bpm and maximum heart rate of only 96 bpm, minimumheart rate of 39 bpm with longest RR interval of 2.6 seconds, symptoms of shortness of breath correl ated to rate controlled atrial fibrillation with heart rates in the range of 56 to 69 bpm -On Eliquis for CVA prophylaxis and atenolol for rate control Last Assessment & Plan: Bradycardic ventricular response but without major symptoms of lightheadedness or syncope, continuemonitoring, continue atenolol at current dose of 50 mg daily for rate control but would back off ondose or discontinue should he develop any symptoms; Eliquis 5 twice daily for CVA prophylaxis Coronary artery disease involving [place] coronary artery of [place] heart without angina pectoris 02/15/2014 -Status post anginal symptoms with abnormal stress [...] origin of the RPL V jeopardizing retrograde flowto this vessel that is unlikely to be of clinical significance -Medical management was pursued -An echocardiogram was also ordered and obtained on 11/28/2020 (I independently reviewed the images)and it showed normal biventricular size and systolic [...] mg at bedtime, aspirin 81 mg daily; updatedfasting lipid profile ordered Abnormal stress ECG 01/14/2014 Diabetic neuropathy ([facility] V24, [facility] V28) 04/24/2012 Hyperlipidemia with target LDL less than 100 04/24/2012 IMO update Last Assessment & Plan: I do not have a recent lipid profile. If 1 can be sent from his PCPs office, we greatly appreciate it. Continue high intensity statin given his known coronary artery disease. Diabetes mellitus type 2, controlled, with complications ([facility] V24, [facility] V28) 12/17/2010 External hemorrhoids 07/20/2010 Lyme disease 07/20/20102007 Esophageal reflux 05/31/2005 Essential hypertension, benign 05/31/2005 Last Assessment & Plan: Suboptimally controlled today but may be whitecoat phenomenon, recommended blood pressure checks athome-no more than 2-3 times a week in a resting state at different times of the day if possible; continue current regimen of amlodipine 5 mg daily, atenolol 50 mg daily, furosemide 40 mg daily for the time being Resolved Problems No resolved problems to display. ALLERGIES: Current Allergies[2] FAMILY HISTORY: Family History[3] SOCIAL HISTORY: Social History Tobacco Use Smoking status: Former Current packs/day: 0.00 Types: Cigarettes Quit date: 04/18/1985 Years since quittin.9 Smokeless tobacco: Never Substance Use Topics Alcohol use: Yes PHYSICAL EXAM: Vitals: 03/28/25 0854 BP: (!) 140/72 BP Location: Right arm Patient Position: Sitting BP Cuff Size: Adult Pulse: (!) 41 SpO2: 96% Weight: 82.1 kg (181 lb) Height: 1.702 m (67 ) Body mass index is 28.35 kg/m??. APPEARANCE: Alert and in no acute distress, healthy appearing, appears younger than stated age EYES: PERRL, conjunctiva and sclera normal NECK: Neck supple, 2+ carotid pulses, No bruits. HEART: Irregularly irregular, bradycardic LUNG: clear to auscultation ABDOMEN: Bowel sounds normoactive, no bruits, soft, non-tender EXTREMITIES: Extremities warm and well perfused without clubbing, cyanosis, or edema NEURO: Awake, alert and oriented x 3, Cranial nerves II-XII grossly intact SKIN: Skin color, texture, turgor normal. No rashes or lesions. PSYCH: Mood and affect are appopriate. MSK: Moves all extremities, gait is normal EKG 03/28/2025: atrial fibrillation, rate 41 bpm TESTING: No results found for: NA , K , CO2 , CL , BUN , GLU No results found for: WBC , HGB , HCT , MCV No results found for: INR Lab Results Component Value Date CHOL 0 08/07/2020 LDL 0 08/07/2020 HDL 0 08/07/2020 TRIG 0 08/07/2020 ASSESSMENT/PLAN: Don Rhoades is a 75-year-old gentleman who presents for cardiac follow- up of the below mentioned issues. All in all, he is doing excellently from a cardiac standpoint. I encouraged him to continue his excellent exercise routine. He is euvolemic on exam. Today I took the liberty to make some adjustments to his medications to be more in line with guidelines. Please see problem specific recommendations below. Assessment & Plan Chronic atrial fibrillation (CMS/[facility] V24, CMS/HCC V28) Continue Eliquis for CVA prophylaxis. Patient is bradycardic so I am cutting back on atenolol. Orders: ECG 12 lead Essential hypertension, benign Suboptimally controlled today and has been on prior visits as well. I asked him to check his blood pressures at home no more than 3 times a week and demonstrated proper technique. At this point, I think he could be on better guideline directed therapy. It is unclear why he is not on CORI inhibitor or ARB- this would be very important for renal protection especially because he is diabetic. Therefore, I am starting him on valsartan 40 mg daily. Will have him repeat a basic metabolic panel in 2 to 4weeks. In the interim, I am also decreasing his atenolol. He is quite bradycardic at baseline and there is no absolute indication for this medication. I am decreasing it to 25 mg. Ideally I would like to get him on a regimen of amlodipine and valsartan alone and discontinue atenolol altogether. Hiswife is going to send me a [employer] message detailing his blood pressures over the next month. If blood pressures are well- controlled, my bias would be to discontinue atenolol altogether and continue f orward with valsartan and amlodipine. Orders: Basic metabolic panel; Future Chronic heart failure with preserved ejection fraction (CMS/HCC V24, CMS/HCC V28) Patient is well-controlled and has not had any recent heart failure hospitalizations or signs of volume overload. A since I am making other medication changes though I do not want to do too much at once. When I get the message from his in a month, if his volume status remains stable, my bias would be to switch his diuretic dosing to as needed only. Continue current Jardiance, adding valsartan as above. Coronary artery disease involving [place] coronary artery of [place] heart without angina pectoris No recurrent anginal symptoms, continue current statin. 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 The [facility] team will continue to co-manage this patient following the plan of care as established by my initial visit and as per AHA guidelines for ongoing management and surveillance of the above mentioned issues. This will include medication titration, initiation of appropriate medications and further titration, and diagnostic studies to manage this disease process. This note was dictated using voice recognition software. Please pardon any grammatical or syntax errors. [1] Outpatient Medications Marked as Taking for the 03/28/25 encounter (Office Visit) with Racheal Harmon MD Medication Sig Dispense Refill amLODIPine (NORVASC) 5 mg tablet TAKE 1 TABLET BY MOUTH EVERY DAY 90 tablet 2 atenoloL (TENORMIN) 50 mg tablet Take 0.5 tablets (25 mg total) by mouth 1 (one) time each day. atorvastatin (LIPITOR) 80 mg tablet TAKE 1 TABLET BY MOUTH DAILY blood sugar diagnostic (FreeStyle Lite Strips) test strip 1 Strip by Does not apply route 2 times daily. blood-glucose meter kit by Does not apply route. Use once a day as needed Eliquis 5 mg tablet TAKE 1 TABLET BY MOUTH TWICE A DAY 180 tablet 3 empagliflozin (Jardiance) 10 mg tablet Take 1 tablet (10 mg total) by mouth 1 (one) time each day in the morning. ferrous sulfate 142 mg ER tablet Take 1 tablet by mouth daily. finasteride (PROSCAR) 5 mg tablet Take 5 mg by mouth daily. FREESTYLE LANCETS MISC 1 Each by Does not apply route 2 times daily. furosemide (LASIX) 40 mg tablet Take 40 mg by mouth daily. metFORMIN (GLUCOPHAGE) 500 mg tablet Take 500 mg by mouth daily. omeprazole (PriLOSEC) [address] capsule Take 1 Cap by mouth daily. [DISCONTINUED] aspirin 81 mg EC tablet Take 81 mg by mouth daily. [2] No Known Allergies [3] Family History Problem Relation Name Age of Onset Lung cancer Father Esophageal cancer Mother documented in this encounter Plan of Treatment Scheduled Orders Name Type Priority Associated Diagnoses Orde r Schedule Basic metabolic panel Lab Routine Essential hypertension, benign 1 Occurrences starting 03/28/2025 until 03/28/2026 documented as of this encounter Procedures Procedure Name Priority Date/Time Associated Diagnosis Comments ECG 12-LEAD Routine 03/28/2025 9:00 AM EST Chronic atrial fibrillation (CMS/HCC V24, CMS/HCC V28) documented in this encounter Results * ECG 12 lead (03/28/2025 9:00 AM EST) Ventricular Rate ECG 41 BPM GEMUSE Atrial Rate 41 BPM GEMUSE QRS Duration 100 ms GEMUSE Q-T Interval 482 ms GEMUSE QTc 397 ms GEMUSE R Post 3 degrees GEMUSE T Post 16 degrees GEMUSE ECG Interpretation Atrial fibrillation with slow ventricular response Abnormal ECG When compared with ECG of 27-APR-2024 08:39, No significant change was found Confirmed by RACHEAL HARMON ([id number]) on 03/28/2025 2:25:23 PM GEMUSE 03/28/2025 9:00 AM EST 03/28/2025 2:25 PM EST us Racheal Harmon MD ECG ORDERABLES Final Result GEMUSE documented in this encounter Visit Diagnoses Diagnosis Chronic atrial fibrillation ([facility] V24, [facility] V28)- Primary Atrial fibrillation Essential hypertension, benign Chronic heart failure with preserved ejection fraction ([facility] V24, [facility] V28) Coronary artery disease involving [place] coronary artery of [place] heart without angina pectoris documented in this encounter Discontinued Medications Medication Sig Discontinue Reason Start Date End Da te aspirin 81 mg EC tablet Take 81 mg by mouth daily. Side effects 03/28/2025 documented as of this encounter Care Teams Tennis Court Attendant Relationship Specialty Start Date End Date Name, MD Nahum 4 [place], [place] PCP - General Internal Medicine 01/17/14 documented as of this encounter
--- NOTE | 2025-04-02 12:43 | A.OFFVIS_ITS ---
Intake Visit Reasons: 6M/PSA/SET Allergies No Known Allergies Allergy (Verified 10/16/24 09:55) HPI Comments Details: Abad is a pleasant male. He is a patient of Dr. Kelly. He has seen for the following urologic conditions - elevated PSA Six-month repeat PSA shows continued rise Plan for prostate MRI Remains on low-dose finasteride Elevated PSA PSA 08/09 4.6, 03/11 4.4 7%, 10/10 4.7 6% F+, 03/12 5.1 6% Consistent with large prostate PCPT calculator 35% low-grade probability, less than 10% high-grade Discussed prostate biopsy versus trending PSA level Brother with prostate cancer PFSH Medical History Family history of prostate cancer Atrial fibrillation COVID-19 vaccine administered History of cataract Depression Diabetes High cholesterol HTN (hypertension) Surgical History S/P triple vessel bypass Hx of cholecystectomy Family History Father Cancer Brother Cancer Mother Esophageal cancer Other Prostate cancer Social History Household Members: Spouse Housing: House Are you a primary resident care aid to a significant other at home: No Do you presently have visiting nurse or other home services: No Alcohol intake: current Alcohol intake frequency: a few times a week Alcohol type: beer Patient Tobacco Use Status: Former Tobacco user Tobacco use type: Cigarette Cigarette Packs Per Day: 2.5 service: Yes Current occupational status: retired Review of Systems Const Denies chills and Denies fever(s) Card Reports no additional complaints and Denies syncope Resp Denies cough GI Denies abdominal pain and Denies heartburn Reports as per HPI and Denies change in libido Neuro Denies syncope Psych Denies change in libido Endo Denies change in libido Physical Exam Const General: cooperative, healthy appearing, comfortable and no acute distress Orientation/consciousness: patient oriented x3 HEENT Face and sinus: Yes normal facial exam Mouth: moist mucous membranes Neck Neck: Yes normal visual inspection, Yes full ROM and Yes trachea midline Chest Chest palpation & inspection: normal inspection of the chest Resp Effort & Inspection: normal respiratory effort, able to speak in complete sentences and no respiratory distress GI Inspection: Yes normal to inspection Back/Spine/Pelvis Cervical Spine: normal cervical lordosis Thoracic/Lumbar Spine: thoracic and lumbar spine normal to inspection Skin General skin exam: no rashes or lesions noted Neuro General: patient oriented x3, gait normal, tone normal and moves all extremities Extrem General: Yes normal to inspection and Yes capillary refill normal Assessment & Plan Assessment & Plan (1) Elevated PSA: Code(s): R97.20 - Elevated prostate specific antigen [PSA] Category: Medical Plan Plan prostate MRI with potential biopsy Orders: Orders MR Prostate wo/w con 04/02/25 R97.20 - Elevated prostate specific antigen [PSA] Patient Instructions: This note is constructed using voice recognition software. While every effort has been made to ensure accuracy pastry assistant errors may have been included. Imaging studies, laboratory and physical exam results were discussed and reviewed in detail. No major barriers to patient understanding were identified. An opportunity to ask questions regarding the treatment plan was provided. All questions were answered. The patient expressed understanding and agreement with the above treatment plan. The patient is aware they should contact our office by phone for worsening of their current condition or the appearance of new urologic symptoms. Compliance is encouraged with any medications and followup testing that is ordered. It is a privilege to participate in the urologic care of your patient. If you have any questions or concerns regarding treatment for the above conditions, or other urologic issues, please do not hesitate to contact me. The office telephone contact is [phone]. Sincerely, Dr Bro Harrell MD, [facility] - Urology Compassionate Specialist Care for the Genitourinary System Coding Level of Care Code Est Pt Level 3 (67164) Add On Problem Visit Only Diagnoses Elevated PSA R97.20
--- OUTSIDE RECORDS SUMMARY | 2025-04-02 16:33 | XMS_ITS | Encounter Summary ---
Author Organization [employer] Address [address] [place] [address] [place] [address] Care Team Providers Care Parts Product Analyst Name Role Phone Name, Nahum BRODY Primary Care Provider [phone] Reason for Visit * Reason Comments Med Refill Encounter Details Date Type Department Care Team (Late st Contact Info) Description 10/11/2022 Refill [facility] [address] [place] [address] [phone] Joyce Peterson FNP [address] [place] [address] Essential hypertension; Hx of CABG Social History Tobacco Use Types Packs/Day Years Used Date Smoking Tobacco: Never Smokeless Tobacco: Never Depression Answer Date Recorded Patient Health Questionnaire-9 Score 0 03/25/2022 Depression Answer Date Recorded Patient Health Questionnaire-2 Score 0 03/25/2022 Sex and Gender Information Value Date Recorded Sex Assigned at Male 02/15/2022 10:29 AM EDT Legal Sex Male 10:29 AM EDT Gender Identity Male 02/15/2022 10:29 AM EDT Sexual Orientation Straight 02/15/2022 10 :29 AM EDT documented as of this encounter Plan of Treatment Upcoming Encounters Date Type Department Care Team (Late st Contact Info) Description 04/25/2025 9:00 AM EST Office Visit [facility] [address] [place] [address] [phone] Name, MD Nahum [address] [place] [address] documented as of this encounter Visit Diagnoses Diagnosis Essential hypertension Unspecified essential hypertension Hx of CABG Postsurgical aortocoronary bypass status documented in this encounter Additional Health Concerns Assessment Noted Time PHQ-9 Depression Total Score: 0 03/25/20 22 9:55 AM EST documented as of this encounter Care Teams Parts Product Analyst Relationship Specialty Start Date End Date Name, MD Nahum [address] [place] [address] PCP - General Family Medicine 07/11/15 documented as of this encounter
--- OUTSIDE RECORDS SUMMARY | 2025-04-02 16:33 | XMS_ITS | Encounter Summary ---
Author Organization [employer] [facility] Address [address] [place] [address] Care Team Providers Care Glove Sewer Name Role Phone Name, Nahum BRODY Primary Care Provider [phone] Encounter Details Date Type Department Care Team (Late st Contact Info) Description 09/27/2022 Abstract [facility] [address] [place] [address] [phone] NameNahum MD [address] [place] [address] [phone] Social History Tobacco Use Types Packs/Day Years [...] Description 04/25/2025 9:00 AM EST Office Visit [facility] [address] [place] [address] [phone] Nahum Kelly MD [address] [place] [address] [phone] documented as of this encounter Procedures Procedure Name Priority Date/Time Associated Diagnosis Comments HM COLONOSCOPY Routine 01/06/2015 11:20 AM EDT documented in this encounter Results * Hm Colonoscopy (01/06/2015 11:20 AM EDT) Colonoscopy Normal Normal Narrative Alejandra Serna - 01/06/2015 11:20 AM EDT Recommended 10 year follow up (Dana ) us Historical Provider HEALTH MAINTENANCE Final Result documented in this encounter Visit Diagnoses Not on filedocumented in this encounter Additional Health Concerns Assessment Noted Time PHQ-9 Depression Total Score: 0 03/25/20 22 9:55 AM EST documented as of this encounter Care Teams Glove Sewer Relationship Specialty Start Date End Date Name, MD Nahum [address] [place] [id number] PCP - General Family Medicine 07/11/15 documented as of this encounter
--- OUTSIDE RECORDS SUMMARY | 2025-04-02 16:33 | XMS_ITS | Clinical Summary ---
Author Organization [address] [place] [address] [place] [phone] Phone Care Team Providers Care Director Of Agriculture Name Role Phone Name, Nahum BRODY Primary Care Provider [phone] Allergies No known active allergies Medications FREESTYLE LANCETS MISC 1 Each by Does not apply route 2 times daily. 4 Active blood sugar diagnostic (FreeStyle Lite Strips) test strip 1 Strip by Does not apply route 2 times daily. 4 Active blood-glucose meter kit by Does not apply route. Use once a day as needed 1 Active atenoloL (TENORMIN) 50 mg tabletIndicatio ns:hypertension Take 0.5 tablets (25 mg total) by mouth 1 (one) time each day. 2 Active atorvastatin (LIPITOR) 80 mg tablet TAKE 1 TABLET BY MOUTH DAILY 8 Active ferrous sulfate 142 mg ER tablet Take 1 tablet by mouth daily. Active finasteride (PROSCAR) 5 mg tablet Take 5 mg by mouth daily. 1 Active furosemide (LASIX) 40 mg tablet Take 40 mg by mouth daily. 1 Active metFORMIN (GLUCOPHAGE) 500 mg tablet Take 500 mg by mouth daily. Active omeprazole (PriLOSEC) [address] capsule Take 1 Cap by mouth daily. 6 Active Eliquis 5 mg tablet TAKE 1 TABLET BY MOUTH TWICE A DAY 180 tablet 3 5 Active empagliflozin (Jardiance) 10 mg tablet Take 1 tablet (10 mg total) by mouth 1 (one) time each day in the morning. Active amLODIPine (NORVASC) 5 mg tabletIndicatio ns:Atherosclero tic heart disease of [place] coronary artery without angina pectoris TAKE 1 TABLET BY MOUTH EVERY DAY 90 tablet 2 5 Active valsartan (DIOVAN) 40 mg tablet Take 1 tablet (40 mg total) by mouth 1 (one) time each day. 90 tablet 5 03/28/20 26 Active aspirin 81 mg EC tablet Take 81 mg by mouth daily. 03/28/20 25 Discontinu ed(Side effects) Active Problems Problem Noted Date Diagnosed Date Chronic heart failure with preserved ejection fr action 04/02/2021 Overview (04/27/2024): -Hospitalized at [facility] from 12/16/2020 to 12/17/2020 for heart failure [...] 11/2020 findings are unchanged. Assessment & Plan (03/28/2025 5:56 PM EST): Patient is well-controlled and has not had [...] Continue current Jardiance, adding valsartan as above. Assessment & Plan (04/27/2024 9:19 AM EST): [...] finding at colonoscopy 01/06/2015. Chronic atrial fibrillation 02/15/2014 Overview (03/09/2024): -Had an episode after [...] daily for CVA prophylaxis Assessment & Plan (03/28/2025 5:56 PM EST): Continue Eliquis for CVA prophylaxis. Patient is bradycardic so I am cutting back on atenolol. Orders: ECG 12 lead Assessment & Plan (04/27/2024 9:19 AM EST): Patient still has a bradycardic ventricular response but he reports that he exercises every day and has not had any new or worse symptoms. Denies major lightheadedness or syncope. Should continue on his current dosage of atenolol 50 mg as well as Eliquis 5 mg twice daily. Patient denies any abnormal bleeding. He has a [id number] score of 5. Orders: ECG 12 lead Coronary artery disease invo lving [place] coronary artery of [place] heart without angina pectoris 02/15/2014 Overview (03/09/2024): [...] fasting lipid profile ordered Assessment & Plan (03/28/2025 5:56 PM EST): No recurrent anginal symptoms, continue current statin. 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 Assessment & Plan (04/27/2024 9:20 AM EST): Patient does not have any recurrent anginal symptoms, continue on the atorvastatin, baby aspirin, as well as beta-gertrudis. Instructed to call 911 or go to the emergency room should the patient begin to experience chest pain or pressure lasting greater than 10 minutes does not resolve with rest. Diabetic neuropathy 04/24/2012 Hyperlipidemia with target LDL less than 100 10/2012 Overview (03/09/2024): IMO update Last Assessment & Plan: I do not have a recent lipid profile. If 1 can be sent from his PCPs office, we greatly appreciate it. Continue high intensity statin given his known coronary artery disease. Diabetes mellitus type 2, controlled, with compl ications 12/17/2010 External hemorrhoids 07/20/2010 Lyme disease 07/20/2010 [...] for the time being Assessment & Plan (03/28/2025 5:56 PM EST): Suboptimally controlled today and has been on prior visits as well. I asked him to check his blood pressures at home no more than 3 times a week and demonstrated proper technique. At this point, I think he could be on better guideline directed therapy. It is unclear why he is not on CORI inhibitor or ARB-this would be very important for renal protection especially because he is diabetic. Therefore, I am starting him on valsartan 40 mg daily. Will have him repeat a basic metabolic panel in 2 to 4 weeks. In the interim, I am also decreasing his atenolol. He is quite bradycardic at baseline and there is no absolute indication for this medication. I am decreasing it to 25 mg. Ideally I would like to get him on a regimen of amlodipine and valsartan alone and discontinue atenolol altogether. His is going to send me a [employer] message detailing his blood pressures over the next month. If blood pressures are well-controlled, my bias would be to discontinue atenolol altogether and continue forward with valsartan and amlodipine. Orders: Basic metabolic panel; Future Assessment & Plan (04/27/2024 9:20 AM EST): Educated on the importance of diet lifestyle to help further assist in reducing blood pressure. The patient was encouraged to follow low-salt low-fat diet, make purposeful strides towards weight loss, and engage in routine aerobic exercise as tolerated. Encounters Date Type Department Care Team Description 03/28/2025 8:50 AM EST Office Visit [facility] [address] [place] [address] Racheal Harmon MD Chronic atrial fibrillation (CMS/HCC V24, CMS/HCC V28) (Primary Dx); Essential hypertension, benign; Chronic heart failure with preserved ejection fraction (CMS/HCC V24, CMS/HCC V28); Coronary artery disease involving [place] coronary artery of [place] heart without angina pectoris from Last 3 Months Immunizations Immunization Administration Dates Next Due Influenza trivalent, 0.5mL, [...] COMMENT: normal UPPER GASTROINTESTINAL ENDOSCOPY 09/17/2004 PROCEDURE: [facility] UPPER GI ENDOSCOPY PERFORMED; COMMENT: normal with [...] mellitus type 2, co ntrolled, with complications ([facility] V24, [facility] V28) DX:Diabetes mellitus type 2, controlled, with complications ([facility]); COMMENT: w/o correction current use of insulin Muscle cramps DX:Muscle cramps COPD (chronic obstructive pu lmonary disease) ([facility] V24, [facility] V28) DX:COPD (chronic o bstructive pulmonary disease) ([facility]) Anxiety DX:Anxiety Family History Medical History Relation [...] on file Sexual Orientation Not on file Last Filed Vital Signs Vital Sign Reading [...] Mass Index 28.35 03/28/2025 8:54 AM EST Plan of Treatment Health Maintenance Due Date Last Done Comments Diabetes: Annual Foot Exam 1960 Diabetes: Annual Retina Eye Exam 1960 Falls Risk Assessment 03/27/2022 Medicare Annual Wellness Visit 03/27/2022 Social Influencers of Health Screening 03/27/2022 Depression Screening 04/18/2024 Diabetes: Annual Urine Albumin-Creatinine Ratio (uACR) 08/14/2024 08/15/2023 Diabetes: Blood Sugar Control Test (HGBA1C) 03/10/2025 09/07/2024, 03/07/2024, 08/07/2020 Diabetes: Annual GFR (Glomerular Filtration Rate) 03/31/2025 03/31/2024, 03/07/2024, 12/23/2020 Hypertension/CHF/CAD Annual BMP Blood Test 03/31/2025 03/31/2024, 03/07/2024, 12/23/2020 COVID-19 Vaccine (9 - Moderna risk season) 2025 03/18/2025, 02/01/2024, 01/28/2023, Additional history exists Cholesterol Screening (Lipid Panel) 09/07/2029 09/07/2024, 03/07/2024, 08/07/2020 DTaP,Tdap,and Td Vaccines (4 - Td or Tdap) 12/07/2031 12/06/2021, 01/06/2018, 11/07/2007 Abdominal Aortic Aneurysm (AAA) Screen Discontinued 10/17/2014 Colorectal Cancer Screening: Colonoscopy Discontinued 01/06/2015 Zoster Vaccines Completed 10/09/2019, 11/2019, 04/24/2012 RSV Immunization Adult Patients Completed 01/28/2023 Hepatitis C Screening Completed 08/15/2023, 024 Pneumococcal Vaccine: 50+ Years Completed 08/15/2023, 11/17/2015, 06/15/2013 Influenza Vaccine Completed 03/18/2025, , 01/28/2023, Additional history exists HIB Vaccines Aged Out [...] 03/28/2025 9:00 AM EST Chronic atrial fibrillation ([facility]/HCC V24, [facility] V28) HEPATITIS C SCREENING Routine 08/15/2023 URINE ALBUMIN CREATININE RATIO Routine 08/15/2023 ANNUAL BMP BLOOD TEST Routine 12/23/2020 HEMOGLOBIN A1C Routine 08/07/2020 LIPID PANEL Routine 08/07/2020 COLONOSCOPY Routine 01/06/2015 ABDOMINAL AORTIC ANEURYSM SCRREN Routine 10/17/2014 from Last 3 Months or Most Recently Relevant to Health Maintenance Results * ECG 12 lead (03/28/2025 9:00 AM EST) [facility] Ventricular Rate ECG 41 BPM GEMUSE Atrial Rate 41 BPM GEMUSE QRS Duration 100 ms GEMUSE Q-T Interval 482 ms GEMUSE QTc 397 ms GEMUSE R [place] 3 degrees GEMUSE T [place] 16 degrees GEMUSE ECG Interpretation Atrial fibrillation with slow ventricular response Abnormal ECG When compared with ECG of 27-APR-2024 08:39, No significant change was found Confirmed by RACHEAL HARMON ([id number]) on 03/28/2025 2:25:23 PM GEMUSE 03/28/2025 9:00 AM EST 03/28/2025 2:25 PM EST Result [facility] Racheal Harmon MD ECG ORDERABLES Final Result GEMUSE * Urine Albumin Creatinine Ratio (08/15/2023) [facility] Urine Albumin Creatinine Ratio Abstracted Result [facility] Provider HEALTH MAINTENANCE Final Result * Hepatitis C Screening (08/15/2023) [facility] Hepatitis C Screening Abstracted Result [facility] Provider HEALTH MAINTENANCE Final Result * Annual BMP Blood Test (12/23/2020) [facility] Annual BMP Blood Test Abstracted Result [facility] Provider HEALTH MAINTENANCE Final Result * Hemoglobin A1c (08/07/2020) [facility] Hemoglobin A1C 0.0 % Comment:No Interpretation Blood Venous blood specimen / Unknown Result [facility] Provider LAB BLOOD ORDERABLES Lacey l Result * Lipid panel (08/07/2020) [facility] LDL/HDL Ratio 0 Comment:No Interpretation Triglycerides 0 mg/dL Comment:No Interpretation Cholesterol 0 mg/dL Comment:No Interpretation HDL 0 mg/dL Comment:No Interpretation LDL Cholesterol 0 mg/dL Comment:No Interpretation Blood Venous blood specimen / Unknown Historical Provider LAB BLOOD ORDERABLES Lacey l Result * Colonoscopy (01/06/2015) Colonoscopy No Interpretation , Abstracted Anatomical Region Laterality Modality Other Historical Provider HEALTH MAINTENANCE Final Result * Abdominal Aortic Aneurysm Screen (10/17/2014) Abdominal Aortic Aneurysm (AAA) Screening Abstracted Anatomical Region Laterality Modality Other Historical Provider HEALTH MAINTENANCE Final Result from Last 3 Months or Most Recently Relevant to Health Maintenance Insurance MEDICARE [facility] Care Teams Director Of Agriculture Relationship Specialty Start Date End Date Name, MD Nahum [address] [facility] [place] PCP - General Internal Medicine 01/17/14
--- OUTSIDE RECORDS SUMMARY | 2025-04-02 16:33 | XMS_ITS | Encounter Summary ---
Author Organization [employer] Address [address] [place] [address] Care Team Providers Care Public Health Director Name Role Phone Name, Nahum BRODY Primary Care Provider [phone] Reason for Visit * Reason Onset Date Comments Appointment Request 01/17/2025 Encounter Details Date Type Department Care Team ([facility] Contact Info) Description 01/17/2025 Telephone [facility] [address] [place], [place] [phone] Name, MD Nahum [address] [place] [address] Appointment Request Social History Tobacco Use Types Packs/Day Years [...] AM EDT documented as of this encounter Miscellaneous Notes * Telephone Encounter - Dania Carballo - 01/17/2025 9:13 AM EDT TC from pt requesting to be rescheduled for DERM visit . Grinder Machine Knife Setter informed patient that DERM appointments are very limited and may not have availability for another month documented in this encounter Plan of Treatment Upcoming Encounters Date Type Department Care Team (Late st Contact Info) Description 04/25/2025 9:00 AM EST Office Visit [facility] [address] [place] [address] Name, MD Nahum [address] [place] [address] documented as of this encounter Visit Diagnoses Not on filedocumented in this encounter Additional Health Concerns Assessment Noted Time PHQ-9 Depression Total Score: 0 12/02/19 24 9:02 AM EDT documented as of this encounter Care Teams Public Health Director Relationship Specialty Start Date End Date Name, MD Nahum [address] [place] [address] PCP - General Family Medicine 07/11/15 documented as of this encounter
--- OUTSIDE RECORDS SUMMARY | 2025-04-02 16:33 | XMS_ITS | Clinical Summary ---
Author Organization [employer] Address [address] [facility] [address] [place] [address] Care Team Providers Care Qm Consultant Name Role Phone Name, Nahum BRODY Primary Care Provider [phone] Allergies No known active allergies Medications aspirin 81 MG EC tablet Take 1 tablet by mouth 1 (one) time each day. 1 Active valACYclovir (Valtrex) 1 g tablet Take 2 tablets by mouth every 12 (twelve) hours. 0 Active glucose blood (FREESTYLE LITE) test strip 9 Active Ferrous Sulfate Dried ER 143 (45 Fe) MG tablet controlled-rel ease Active apixaban (Eliquis) 5 MG tablet Take 1 tablet by mouth every 12 (twelve) hours. Active amLODIPine (Norvasc) 5 MG tablet Take 1 tablet by mouth 1 (one) time each day. Active allopurinol (Zyloprim) 300 MG tablet 3 Active albuterol 108 (90 Base) MCG/ACT inhalerIndicat ions:Bronchiti s Inhale 2 puffs every 6 (six) hours if needed for wheezing. 18 g 11 3 Active metFORMIN (Glucophage) 500 MG tablet TAKE 1 TABLET BY MOUTH EVERY DAY WITH A MEAL 90 tablet 3 5 Active finasteride (Proscar) 5 MG tabletIndicati ons:Androgenic alopecia GIVE 1/4 TABLET BY MOUTH DAILY 30 tablet 1 5 Active atenolol (Tenormin) 50 MG tabletIndicati ons:Essential hypertension,H x of CABG TAKE 1 TABLET BY MOUTH EVERY DAY 90 tablet 3 5 Active omeprazole (PriLOSEC) [address] capsuleIndicat ions:Heartburn TAKE 1 CAPSULE BY MOUTH EVERY DAY BEFORE A MEAL 90 capsule 1 5 Active furosemide (Lasix) 40 MG tabletIndicati ons:Heartburn, Atherosclerosi s of [place] coronary artery of [place] heart without angina pectoris TAKE 1 TABLET BY MOUTH EVERY DAY 90 tablet 1 5 Active empagliflozin (Jardiance) 10 MG TAKE 1 TABLET BY MOUTH EVERY DAY 30 tablet 2 5 Active atorvastatin (Lipitor) 80 MG tablet TAKE 1 TABLET BY MOUTH EVERYDAY AT BEDTIME 90 tablet 3 5 Active atorvastatin (Lipitor) 80 MG tablet TAKE 1 TABLET BY MOUTH EVERYDAY AT BEDTIME 90 tablet 3 4 025 Discontinued Active Problems Problem Noted Date Diagnosed Date Elevated PSA 05/01/2024 Hemorrhage of skin lesion 05/01/2024 PAD (peripheral artery disease) 05/01/2024 Raynauds disease 05/01/2024 CLL (chronic lymphocytic leukemia) 05/01/2024 Diabetes mellitus type 2, diet-controlled 2023 Paroxysmal atrial fibrillation (CMS/HCC) 024 B-cell lymphoma ([facility]/HCC) 02/24/2023 Herpes labialis 07/07/2022 Chronic obstructive lung disease 03/18/2022 Chronic lymphocytic leukemia (CMS/HCC) 2 Chronic heart failure with preserved ejection fr action 04/02/2021 Overview (02/24/2023): -Hospitalized at [facility] from 12/16/2020 to 12/17/2020 for heart failure [...] viral panel for respiratory viruses was negative Last Assessment & Plan: No recurrent symptoms on current dose of Lasix 40 mg daily, most recent basic metabolic panel from outside lab on 12/03/2022 showed BUN and creatinine of 12 and 0.88 and a potassium level of 4.2 Depressive disorder 04/14/2018 Anxiety 01/06/2018 Chronic gout of multiple sites 12/15/2016 Diverticulitis of colon without hemorrhage 01/06 Overview (11/02/2022): Incidental finding at colonoscopy 01/06/2015. Coronary artery disease invo lving takotna coronary artery of [place] heart without angina pectoris 02/15/2014 Overview (02/24/2023): cath in 01/2014 showed left main 75%, first OM 70%, proximal RCA 70% , mid RCA 90%, with normal LV function. He underwent three-vessel CABG on 01/2014 with CARIAS to the LAD, left radial to the right PDA, saphenous vein graft to ramus. Exercise nuclear stress 08/01/2018 where he was able to exercise to an 8.60 MET workload and 84% of the maximal age-predicted heart rate, without symptoms, and normal nuclear images. Last Assessment & Plan: Of late, the patient has some anginal sounding discomfort with shortness of breath while climbing up a flight of stairs particular if he is carrying anything and a general feeling of malaise, fatigue, and vague chest discomfort when he does his typical exercises. As such, he has curtailed his activities. EKG shows more pronounced anterior ST changes than his prior EKG from December 2019. Given his symptoms and abnormal EKG, concern for progressive coronary artery disease. We are starting amlodipine as a second antianginal to be taken in conjunction with his atenolol, statin, and aspirin. Chest pain precautions are reviewed with the patient and his and he is advised to seek emergency medical attention for any change, progressive, or rest symptoms. I have reached out to his airline station agent who is unfortunately out of the office today to discuss the possibility of undergoing cardiac catheterization from a hematologic standpoint. Abad does have a telehealth visit with her tomorrow and her office will give her the message to call me back at some point tomorrow. I will await her input. -Status post anginal symptoms with abnormal stress [...] mg daily; updated fasting lipid profile ordered S/P CABG x 3 02/15/2014 Overview (11/02/2022): At [facility] with [place] 01/2014 Chronic atrial fibrillation ([facility]) 02/15/2014 Overview (05/01/2024): -Had an episode after his CABG spontaneously [...] Eliquis 5 twice daily for CVA prophylaxis Abnormal stress ECG 01/14/2014 Diabetic neuropathy 04/24/2012 Hyperlipidemia 04/24/2012 Overview (11/02/2022): IMO update Last Assessment & Plan: I do not have a recent lipid profile. If 1 can be sent from his PCPs office, we greatly appreciate it. Continue high intensity statin given his known coronary artery disease. Hyperlipidemia with target LDL less than 100 10/2012 Overview (05/01/2024): IMO update Last Assessment & Plan: I do not have a recent lipid profile. If 1 can be sent from his PCPs office, we greatly appreciate it. Continue high intensity statin given his known coronary artery disease. Diabetes mellitus type 2, controlled, with compl ications 12/17/2010 External hemorrhoids 07/20/2010 Lyme disease 07/20/2010 Overview (05/01/2024): 2007 Esophageal reflux 05/31/2005 Essential hypertension, benign 05/31/2005 1 04/26/2022 Overview (02/24/2023): Last Assessment & Plan: Suboptimally controlled today but may be whitecoat phenomenon, recommended blood pressure checks at home-no more than 2-3 times a week in a resting state at different times of the day if possible; continue current regimen of amlodipine 5 mg daily, atenolol 50 mg daily, furosemide 40 mg daily for the time being Resolved Problems Problem Noted Date Diagnosed Date Resolved Date Cough in adult patient 03/21/202308/14 Bronchitis 03/21/2023 08/15/2023 Assessment & Plan (03/21/2023 4:34 PM EST): -URI likely progress to bronchitis given marked airway constriction on exam -rapid flu and COVID negative. F/u PCR results -orders for azithromycin and albuterol sent to pharmacy -X-ray ordered to r/o pneumonia -increase fluids, rest, maintain balanced diet -will call with abnormal X-ray results -pt advised to return to [facility]/ f/u with PCP if symptoms worsen Pericarditis 11/02/2022 11/02/2022 Respiratory insufficiency 11/02/2022 Leukocytosis 03/18/2022 07/07/2022 Muscle cramps 03/18/2022 08/15/2023 Chronic atrial fibrillation (CMS/HCC) 02/15/2014 08/15/2023 Overview (02/24/2023): Last Assessment & Plan: In normal sinus rhythm today. Only briefly anticoagulated around the time of his atrial fibrillation. Given his anemia/CLL work-up undergoing, just continue his aspirin at current dose. Follow clinically -Had an episode after his CABG spontaneously [...] Eliquis 5 twice daily for CVA prophylaxis Abnormal stress ECG 01/14/2014 11/03/19 Lyme disease 07/20/2010 11/02/2022 Overview (11/02/2022): 2007 Hypertension 05/31/2005 02/24/2023 Overview (11/02/2022): Last Assessment & Plan: Blood pressure somewhat robust. In the setting of likely anginal symptoms, will add amlodipine as both an antihypertensive as well as an antianginal. Indication, side effects and purpose discussed with patient. He understands and agrees. Encounters Date Type Department Care Team Description 03/09/2025 Refill [facility] [address] [place] [address] NameNahum MD 01/31/2025 Telephone [facility] [address] [place] [address] Feroz Castellon [place] nov recalls 01/17/2025 Telephone [facility] [address] [place] [address] Name, MD Nahum Appointment Request 01/07/2025 Refill [facility] [address] [place] [address] Name, MD Nahum 01/05/2025 Refill [facility] [address] [place] [address] Name, MD Nahum Heartburn; Atherosclerosis of tak[place] coronary artery of [place] heart without angina pectoris from Last 3 Months Immunizations Immunization Administration Dates Next Due Influenza High-dose Quadriva lent Preservative Free 02/08/2022,01/09/2021,01/16/2020 Influenza Quadrivalent Adjuvanted 01/28/2023 Influenza injectable quadriv alent preservative free 04/02/2015 Influenza, High Dose Seasona l, Preservative Free 03/18/2025,01/06/2018,12/17/2016,03/05 Influenza, IIV3, injectable 04/02/2015,1 ,02/15/2013,12/23,05/06/2011,01/30/2010,01/13/2009 ,02/08/2008,02/18/2007,02/25/2005 Influenza, Unspecified 01/23/2014 Influenza, seasonal, injecta ble, preservative free 04/02/2015,02/15/2013,12/24/2011,05/06,01/30/2010,01/13/2009,02/08/2008 ,02/18/2007,02/25/2005 Influenza, trivalent, adjuvanted 02/01/2024,11/17 Moderna Covid-19 Vaccine 12+ 02/01/2024, 01/28/2023,02/15/2022,08/25,12/18/2020,09/04/2020,08/07/2020 Moderna Covid-19 Vaccine 6+ Bivalent 02/15/2022 Pneumococcal Conjugate PCV 13 11/17/2015 Pneumococcal Conjugate PCV 20 08/15/2023 Pneumococcal Polysaccharide PPSV23 06/15/2013 RSV Adjuvant 01/28/2023 TD (adult), 2 Lf tetanus tox oid, preservative free, adsorbed 01/06/2018 Tdap 11/07/2007 Zoster, Recombinant 10/09/2019,04/25/2019 Zoster, live 04/24/2012 Family History Medical History Relation Name Comments Prostate cancer Brother Relation Name Status Comments Brother Social History Tobacco Use Types Packs/Day Years [...] Orientation Straight 02/15/2022 10 :29 AM EDT Last Filed Vital Signs Vital Sign Reading Time Taken Comments Blood Pressure 134/70 09/07/2024 9:14 AM EDT Pulse 54 09/07/2024 9:14 AM EDT Temperature 36.6 C (97.8 F) 05/10/2024 9:16 AM EST Respiratory Rate 14 09/07/2024 9:14 AM EDT Oxygen Saturation 99% 09/07/2024 9:14 AM EDT Inhaled Oxygen Concentration - - Weight 77.5 kg (170 lb 12.8 oz) 09/07/2024 9:14 AM EDT Height 172.7 cm (5' 8 ) 09/07/2024 9:14 AM EDT Body Mass Index 25.97 09/07/2024 9:14 AM EDT Plan of Treatment Upcoming Encounters Date Type Department Care Team (Late st Contact Info) Description 04/25/2025 9:00 AM EST Office Visit [facility] [address] [place] [address] Name, MD Nahum [address] [place] [address] Health Maintenance Due Date Last Done Comments Derm Melanoma Skin Check 1949 Alcohol/Substance Use Screening 1961 Eye Exam 04/21/2024 04/21/2023 Depression Screening 12/01/2024 12/02/2023, 12/02/19 24 SDOH Screening 12/01/2024 12/02/2023 COVID-19 Vaccine ( season) 2024 02/01/2024, 01/28/2023, 02/15/2022, Additional history exists Diabetes: Foot Exam 03/07/2025 03/07/2024, 03/07/2024, 03/07/2024, Additional history exists Diabetes: Urine Protein Screening 03/07/2025 03/07/2024, 08/15/2023, 08/07/2020, Additional history exists Diabetes: Hemoglobin A1C 03/10/2025 025, 03/07/2024, 08/15/2023, Additional history exists Lipid Panel 09/07/2025 09/07/2024, 02/17, 08/07/2020 Tobacco Screening 09/07/2025 09/07/2024 DTaP/Tdap/Td Vaccines (3 - Td or Tdap) 01/07/2028 01/06/2018, 11/07/2007 Colonoscopy Discontinued 01/06/2015, 01/06/2015 Colorectal Cancer Screening Discontinued Zoster Vaccines Completed 10/09/2019, 11/2019, 04/24/2012 RSV Patients and Patients Aged 60 years or older Discontinued 01/28/2023 Hepatitis C Screening Completed 08/15/2023 Pneumococcal Vaccine: 50+ Years Completed 08/15/2023, 11/17/2015, 06/15/2013 Influenza Vaccine Completed 03/18/2025, , 01/28/2023, Additional history exists CT Colonography Discontinued FIT DNA/Cologuard Discontinued FIT Discontinued FOBT Discontinued HIB Vaccines Aged Out No longer eligi [...] patient's age to complete this topic Meningococcal Vaccine Aged Out No nelia randa eligible based on patient's age to complete this topic RSV under 20 months Aged Out No longe r eligible based on patient's age to complete this topic Rotavirus Vaccines Aged Out No longer eligible based on patient's age to complete this topic Sigmoidoscopy Discontinued Procedures Procedure Name Priority Date/Time Associated Diagnosis Comments LIPID PANEL, STANDARD Routine 09/07/2024 9:34 AM EDT Type 2 diabetes mellitus with other circulatory complication, without long-term current use of insulin (CMS/HCC) Chronic heart failure with preserved ejection fraction (CMS/HCC) POCT GLYCATED HEMOGLOBIN, TOTAL Routine 09/07/2024 9:15 AM EDT Type 2 diabetes mellitus with other circulatory complication, without long-term current use of insulin (CMS/HCC) ALBUMIN, RANDOM URINE W/CREATININE Routine 03/07/2024 8:46 AM EST Type 2 diabetes mellitus with other circulatory complication, without long-term current use of insulin (CMS/HCC) HEPATITIS C AB W/REFL TO HCV RNA, QN, PCR Routine 08/15/2023 12:07 PM EDT Need for hepatitis C screening test DIABETES EYE EXAM Routine 04/21/2023 COLONOSCOPY Routine 01/06/2015 from Last 3 Months or Most Recently Relevant to Health Maintenance Results * (ABNORMAL) Lipid Panel, Standard (09/07/2024 9:34 AM EDT) Triglycerides 70 <150 mg/dL [facility] Comment:Desirable Triglyceri de: less than 150 mg/dLBorderline High Triglyceride 150-199 mg/dLHigh Triglyceride: 200-499 mg/dLVery High Triglyceride: greater than or equal to 5OO mg/dL Cholesterol 97 <200 mg/dL [facility] Comment:Desirable Cholestero l: less than 200 mg/dLBorderline High Cholesterol: 200-239 mg/dLHigh Cholesterol: greater than 239 mg/dL LDL Cholesterol Calculated 45 <100 mg/dL [facility] Comment:Desirable LDL: less than 100 mg/dLNear Optimal/Above Optimal LDL: 110- 129 mg/dLBorderline High LDL: 130-159 mg/dLHigh LDL: 160-189 mg/dLVery High LDL: greater than or equal to 190 mg/dL HDL Cholesterol 38(L) >40 mg/dL [facility] Comment:Desirable HDL: great er than 40 mg/dL Note: This HDL assay may give artificially low results in patients with liver disease. Blood Venous blood specimen / Unknown 09/07/2024 9:34 AM EDT 09/07/2024 11:23 AM EDT us Nahum Kelly MD LAB BLOOD ORDERABLES Final Resul t [facility] [address] [place] [address] [phone] * POCT HGB A1C (09/07/2024 9:15 AM EDT) Hemoglobin A1C 5.5 4.0 - 6.0 % QC Media Lot # [id number] Lot# Expiration Date ,42 Blood 09/07/2024 9:15 AM EDT us Nahum Kelly MD POINT OF CARE TEST ENTER/EDIT OR DERABLES Final Result * (ABNORMAL) Albumin, Random Urine W/Creatinine (03/07/2024 8:46 AM EST) Creatinine, Urine 49.87 mg/dL [facility] Microalbumin Urine 42.0 mg/L [facility] Microalbum Creatinine Ratio Ur 84.2(H) <30 ug/mg cr [facility] Comment:Albumin/Creatinine R atio Reference Ranges: Normal: < 30 ug/mg creatinine Microalbuminuria: 30 - 300 ug/mg creatinineClinical Albuminuria: > 300 ug/mg creatinine Urine (Urine, Random) 03/07/2024 8:46 AM EST 03/07/2024 11:45 AM EST Result Asher Kelly MD LAB URINE ORDERABLES Final Resul t Performing Organization Address [facility] de Phone Number [facility] [address] [place] [phone] * Hepatitis C Antibody with Reflex to HCV, RNA, Quantitative, Real-Time PCR (08/15/2023 12:07 PM EDT) Hepatitis C Antibody Nonreactive Nonreactive [facility] Comment:Antibodies to HCV no t detected; does not exclude early acuteHCV infection. Blood Venous blood specimen / Unknown 08/15/2023 12:07 PM EDT 08/15/2023 1:10 PM EDT Result Asher Kelly MD LAB BLOOD ORDERABLES Final Resul t Performing Organization Address [facility] Co de Phone Number [facility] [address] [place] [phone] * Diabetes Eye Exam (04/21/2023) Eye Exam Normal Normal Result Asher Kelly MD HEALTH MAINTENANCE Final Result * Colonoscopy (01/06/2015) Colonoscopy performed Result Asher Hensley MD HEALTH MAINTENANCE Final Result from Last 3 Months or Most Recently Relevant to Health Maintenance Insurance MEDICARE Care Teams Qm Consultant Relationship Specialty Start Date End Date Name, MD Nahum [address] [place] [phone] PCP - General Family Medicine 07/11/15
--- OUTSIDE RECORDS SUMMARY | 2025-04-02 16:33 | XMS_ITS | Encounter Summary ---
Author Organization [employer] Address [address] [place] [address] [address] [place] [address] Care Team Providers Care Gas Combustion Engineer Name Role Phone Name, Nahum BRODY Primary Care Provider [phone] Reason for Visit * Reason Comments Med Change Request Encounter Details Date Type Department Care Team ([facility] Contact Info) Description 01/03/2024 Refill [facility] [address] [place] [address] Obed Valenzuela MD [address] [place] [address] Social History Tobacco Use Types Packs/Day Years [...] Description 04/25/2025 9:00 AM EST Office Visit [facility] [address] [place] [address] NameNahum MD [address] [place] [address] documented as of this encounter Visit Diagnoses Not on filedocumented in this encounter Additional Health Concerns Assessment Noted Time PHQ-9 Depression Total Score: 0 12/02/19 24 9:02 AM EDT documented as of this encounter Care Teams Gas Combustion Engineer Relationship Specialty Start Date End Date NameNahum MD [address] [place] [address] PCP - General Family Medicine 07/11/15 documented as of this encounter
--- OUTSIDE RECORDS SUMMARY | 2025-04-02 16:33 | XMS_ITS | Encounter Summary ---
Author Organization [employer] Address [address] [place] [address] Care Team Providers Care Glass Pulverizer Equipment Operator Name Role Phone Name, Nahum BRODY Primary Care Provider [phone] Reason for Visit * Reason Onset Date Comments Reschedule 07/07/2023 Encounter Details Date Type Department Care Team ([facility] st Contact Info) Description 07/07/2023 Telephone [facility] [address] [place], [place] [phone] Name, MD Nahum [address] [place] [address] Reschedule Social History Tobacco Use Types Packs/Day Years Used Date Smoking Tobacco: Never Smokeless Tobacco: Never Alcohol Use Standard Drinks/Week Comments Yes 0 (1 standard drink = 0.6 oz pur e alcohol) socially Depression Answer Date Recorded Patient Health Questionnaire-9 Score 0 03/25/2022 Housing Stability Answer Date Recorded What is your housing situation today? I have oj ibarra 01/30/[address] you li ve. Do you have problems with any of the following? None of the above 01/30/2023 Food Insecurity Answer Date Recorded Within the past 12 months, y ou worried that your food would run out before you got money to buy more: Never True 01/30/2023 Within the past 12 months,th e food you bought just didn't last and you didn't have enough money to get more: Never True Transportation Answer Date Recorded In the past 12 months, has l ack of transportation kept you from medical appts, meetings, work or from getting things needed for daily living? No 01/30/2023 Utilities Answer Date Recorded In the past 12 months, has t he electric, gas, oil or water company threatened to shut off services in your home? No 01/30/2023 Depression Answer Date Recorded Patient Health Questionnaire-2 Score 0 03/25/2022 Sex and Gender Information Value Date Recorded Sex Assigned at Male 02/15/2022 10:29 AM EDT Legal Sex Male 10:29 AM EDT Gender Identity Male 02/15/2022 10:29 AM EDT Sexual Orientation Straight 02/15/2022 10 :29 AM EDT documented as of this encounter Miscellaneous Notes * Telephone Encounter - Samara Milligan - 07/07/2023 9:49 AM EDT Tc from requesting r/s f/u appt. documented in this encounter Plan of Treatment Upcoming Encounters Date Type Department Care Team (Late st Contact Info) Description 04/25/2025 9:00 AM EST Office Visit [facility] [address] [place] [phone] Name, MD Nahum [address] [place] [address] documented as of this encounter Visit Diagnoses Not on filedocumented in this encounter Additional Health Concerns Assessment Noted Time PHQ-9 Depression Total Score: 0 03/25/20 22 9:55 AM EST documented as of this encounter Care Teams Glass Pulverizer Equipment Operator Relationship Specialty Start Date End Date Name, MD Nahum [address] [place] [phone] PCP - General Family Medicine 07/11/15 documented as of this encounter
== END 2025-04-02 16:34 | disposition home or self-care (01) ==
LOC: HO.HUSH 12:46
PROVIDERS: PCP Internal Medicine Geriatric Medicine; Visit Provider Urology
DX: R97.20 Elevated prostate specific antigen [PSA] (principal)
CPT/HCPCS: 99213; G2211

== ENCOUNTER → 2025-04-02 12:46 | Outpatient (BNVA) | payer MEDICARE, OTHER, SELFPAY | PROVIDERS: PCP Internal Medicine Geriatric Medicine; Visit Provider Urology | DX: R97.20 Elevated prostate specific antigen [PSA] (principal) | CPT/HCPCS: 99212 ==